=== PATIENT | female | born 1990 | race Caucasian/White ===

== ENCOUNTER → 2016-08-24 | Outpatient (CLI) | payer BC ==
[~2016-08-24] MED LIST: AZIT-21 PO; CATHETER FLUSH 10 ML SYR IV PRN; CODE-54 PO; FRS325T PO; IBP600T1 PO; IBUP-1773 PO; IOHEXOL 350 MG/ML 100 ML (OMNIPAQUE 350) VIAL IV ONE; NITR-65 PO; NS 100 ML (IVPB) BAG IV ONE; ONDA4TAB8 SL; ONDA8TAB13 PO; PHEN200T27 PO; PREN-115 PO; TRAM50TA2 PO
--- OUTSIDE RECORDS SUMMARY | 2016-08-24 10:55 | XMS REPORT | Continuity of Care Document ---
Author Author [facility] Organization [facility] Address Unknown Phone Unavailable Care Team Providers Care Upsetter Helper Name Role Phone Dominga Luna PCP Unavailable Source Comments Some departments are not documenting in the electronic medical record. If you do not see the information that you expected, contact Release of Information in the Health Information Management department at [phone] for further assistance in locating additional records.[facility] Active Allergies and Adverse Reactions No Known Allergies Current Medications Prescription Sig. Disp. Refills Start End Date Status Date NO HOME MEDICATIONS Active HYDROcodone/acetaminophen Take 1 Tab by mouth every 30 Tab 0 01/14/20 Active (NORCO; VICODIN) 5-325 mg 4 hours as needed for 15 tablet Pain. Active Problems Problem Noted Date Scar condition and fibrosis of skin 01/13/2015 Hypertrophy of breast 09/01/2014 Social History Tobacco Use Types Packs/Day Years Used Date Never Smoker Smokeless Tobacco: Never Used Alcohol Use Drinks/Week oz/Week Comments Yes OCCASSIONALLY Last Filed Vital Signs Vital Sign Reading Time Taken Blood Pressure 116/69 01/13/2015 10:31 AM CDT Pulse 90 01/13/2015 10:31 AM CDT Temperature 37 C (98.6 F) 11/25/2014 2:55 PM CDT Respiratory Rate 18 01/13/2015 10:31 AM CDT Height 1.702 m (5' 7") 01/13/2015 10:31 AM CDT Weight 83.462 kg (184 lb) 01/13/2015 10:31 AM CDT Body Mass Index 28.81 01/13/2015 10:31 AM CDT Oxygen Saturation 99% 10/27/2014 3:00 PM CDT Plan of Care Health Maintenance Due Date Last Done Comments Physical (Comprehensive) 1996 Exam Hpv Vaccines (#1) 2000 Pertussis Vaccine 2000 Tetanus Vaccine 2006 Cervical Cancer Screening 2010 Influenza Vaccine 03/23/2016 Results from Last 3 Months Not on file
--- NOTE | 2016-08-24 12:20 | Diagnostic Imaging Report ---
PROCEDURE: CT abdomen and pelvis with contrast. TECHNIQUE: Multiple contiguous axial images were obtained through the abdomen and pelvis after administration of intravenous contrast. INDICATION: Abdominal pain. 100 mL of Omnipaque-350 is administered intravenously. FINDINGS: The lung bases demonstrate mild atelectasis. The liver, the gallbladder, the spleen, the pancreas, and the adrenal glands appear unremarkable for an unenhanced exam. The abdominal aorta is normal in caliber. No para-aortic significantly enlarged lymph nodes are seen. The kidneys have symmetric enhancement and contrast excretion. There is no hydronephrosis. The urinary bladder appears unremarkable. There is an IUD in the uterus, which appears in good position. There is no bowel obstruction. There is no significant free fluid or fluid collection in the abdomen or pelvis. The appendix is normal. The left adnexa minimally prominent, probably related to prominent follicles. The osseous structures appear grossly unremarkable. There is a 9 mm indeterminate calcification seen anterior to the urethra at the level of the symphysis pubis of questionable significance. No apparent connection to the urethra to suggest urethral diverticulum with a stone. IMPRESSION: No significant abnormality identified. The appendix is normal. Dictated by: Dictated on workstation # [id number]
== END ==
LOC: RAD 10:52
PROVIDERS: ATTEND Internal Medicine
DX: R10.31 Right lower quadrant pain (principal)
CPT/HCPCS: 74177

== ENCOUNTER 2017-06-25 05:30 | Outpatient (CLI) | payer BC ==
[~2017-06-25] VITALS: Ht 172.7 cm; Wt 83.0 kg
[~2017-06-25 05:30] MED LIST changes: -CATHETER FLUSH 10 ML SYR IV PRN; -IOHEXOL 350 MG/ML 100 ML (OMNIPAQUE 350) VIAL IV ONE; -NS 100 ML (IVPB) BAG IV ONE
[2017-06-25] MEDS ORDERED: MULT-141 PO (11:08)
== END 2017-06-25 11:58 ==
LOC: PREOP 05:30
PROVIDERS: ATTEND Obstetrics & Gynecology
DX: Z01.818 Encounter for other preprocedural examination (principal); N39.3 Stress incontinence (female) (male); N80.9 Endometriosis, unspecified; N81.10 Cystocele, unspecified; D64.9 Anemia, unspecified

== ENCOUNTER 2017-06-29 10:04 | Day surgery (SDC) | payer BC ==
[~2017-06-29] VITALS: Ht 172.7 cm; Wt 83.0 kg
[~2017-06-29 10:04] MED LIST changes: +MULT-141 PO
[2017-06-29] MEDS ORDERED: CATHETER FLUSH 10 ML SYR IV PRN (10:30)
[2017-06-29] MEDS ORDERED: ceFAZolin 1 GM/NS 50 ML IVPB IV ONE ×2 (10:30)
[2017-06-29 10:39] VITALS: BP 119/73
[2017-06-29 11:10] LABS: BASOPHILS % (AUTO) 0 % (0-10); EOSINOPHILS % (AUTO) 1 % (0-10); LYMPHOCYTES # (AUTO) 1.6 X 10^3 (1.0-4.0); LYMPHOCYTES % (AUTO) 24 % (12-44); MEAN CORPUSCULAR HEMOGLOBIN 29 PG (25-34); MEAN CORPUSCULAR HGB CONC 33 G/DL (32-36); MEAN CORPUSCULAR VOLUME 89 FL (80-99); MEAN PLATELET VOLUME 11.2 FL (7.4-10.4); MONOCYTES # (AUTO) 0.6 X 10^3 (0.0-1.0); MONOCYTES % (AUTO) 9 % (0-12); NEUTROPHILS # (AUTO) 4.3 X 10^3 (1.8-7.8); NEUTROPHILS % (AUTO) 67 % (42-75); PLATELET COUNT 198 10^3/uL (130-400); RED BLOOD COUNT 4.25 10^6/uL (4.35-5.85); RED CELL DISTRIBUTION WIDTH 12.7 % (10.0-14.5); WHITE BLOOD COUNT 6.5 10^3/uL (4.3-11.0)
--- NOTE | 2017-06-29 12:54 | Progress Note-Pre Operative ---
Pre-Operative Progress Note H&P Reviewed The H&P was reviewed, patient examined and no changes noted. Date Seen by Provider: Jun 29, 2017 Time Seen by Provider: 12:53 Date H&P Reviewed: Jun 29, 2017 Time H&P Reviewed: 12:53 Pre-Operative Diagnosis: chronic pelvic pain/endomtriosis/cystocele/stress urinary incontinence/ ROBINA BORDEN MD Jun 29, 2017 12:53 pm
--- NOTE | 2017-06-29 12:55 | Progress Note-Post Operative ---
Post-Operative Progess Note Surgeon (s)/Tennis Director (s) Surgeon ROBINA BORDEN MD Tennis Director: Carmelita Archer Pre-Operative Diagnosis chronic pelvic pain/endomtriosis/cystocele/stress urinary incontinence/ Post-Operative Diagnosis same with pathology pending Procedure & Operative Findings Date of Procedure 06/29/17 Procedure Performed/Findings total laparoscopic hysterectomy with bilateral salpingo-oophorectomy and anterior and posterior colporrhaphy --- pubovaginal vaginal sling and cystoscopy by Dr. Hamilton Anesthesia Type Gen. Estimated Blood Loss Estimated blood loss (mL): 150 mL Specimens/Packing Specimens Removed uterus tubes and ovaries Packing: Kerlix to the vaginal vault ROBINA BORDEN MD Jun 29, 2017 12:55
[2017-06-29] MEDS ORDERED: D5 LR IV SOLUTION 1,000 ML IV SCH (12:56)
[2017-06-29] MEDS ORDERED: IBUP-1780 PO ×2 (12:59)
[2017-06-29] MEDS ORDERED: DOCU-143 PO ×2 (12:59)
[2017-06-29] MEDS ORDERED: OXYC-202 PO ×2 (12:59)
[2017-06-29] MEDS ORDERED: NORG1TAB14 PO ×2 (12:59)
[2017-06-29] MEDS ORDERED: PROMETHAZINE INJ 25 MG/ML (PHENERGAN) AMP IM PRN (13:00)
[2017-06-29] MEDS ORDERED: BENZOCAINE/MENTHOL (DERMOPLAST) 56 ML CAN TP PRN (13:00)
[2017-06-29] MEDS ORDERED: oxyCODONE/APAP 10/325MG (PERCOCET 10) TABLET PO PRN (13:00)
[2017-06-29] MEDS ORDERED: WATER (STERILE) FOR INJ 10 ML BTL INJ ONE (13:00)
[2017-06-29] MEDS ORDERED: ONDANSETRON 4 MG/2 ML (SDV) Z0FRAN IVP PRN ×2 (13:00→16:00)
[2017-06-29] MEDS ORDERED: MEPERIDINE (DEMEROL) INJ 100 MG/ML IM PRN (13:00)
--- NOTE | 2017-06-29 13:01 | Discharge Instructions ---
Discharge Instructions Discharge Medications New, Converted or Re-Newed RX: RX on Chart Patient Instructions Patient Instructions: as directed Return to The Hospital For: as directed Activity & Diet Discharge Diet: No Restrictions Activity as Tolerated: No Orders-Post D/C & Referrals Follow Up Appt: return to clinic next Monday July 03, 2017 at 930 a.m. for staple removal Call to make follow up appt. for patient in 4 weeks. Activity: Rest for 24 hours, than as tolerated. Wound Care: May remove Band-Aid tomorrow. Replace as desired. Keep incisions clean and dry. Wash daily with soap and water. Please call in RX to patient pharmacy. Diet: As tolerated-Clear Liquids only if nauseated. May shower or tub bathe as desired. No driving for 24 hours, no alcoholic beverages for 24 hours, and nothing per vagina (no tampons, douching, or intercoUrse) for 2 weeks. Patient to return to the clinic as soon as possible for: Temperature greater than 101F, Severe Pain, Foul discharge from incision or vagina, Excessive Bleeding (more than a period). ROBINA BORDEN MD Jun 29, 2017 1:01 pm
[2017-06-29] MEDS ORDERED: BUP/EPI 0.5% 1:200,000 (MARCAINE) 10ML VIAL IJ ONE (13:02)
[2017-06-29] MEDS ORDERED: fentaNYL INJECTION 250 MCG/5 ML AMP ONE (13:21)
[2017-06-29] MEDS ORDERED: MIDAZOLAM 2 MG/2 ML (VERSED) VIAL ONE (13:21)
[2017-06-29] MEDS ORDERED: ESTRADIOL VAGINAL CREAM 42.5 GM (ESTRACE) VG ONE (13:22)
[2017-06-29] MEDS ORDERED: DEXAMETHASONE 10 MG/ML (DECADRON) 1 ML VIAL ONE (14:17)
[2017-06-29] MEDS ORDERED: proPOfol 200 MG/20 ML (DIPRIVAN) VIAL IV ONE (14:17)
[2017-06-29] MEDS ORDERED: SEVOFLURANE (ULTANE) 15 ML INHAL SOLN ONE ×2 (14:17→15:31)
[2017-06-29] MEDS ORDERED: NEOSTIGMINE (BLOXIVERZ ) 1 MG/1ML 10 ML VIAL ONE (14:17)
[2017-06-29] MEDS ORDERED: ROCURONIUM 50 MG/5 ML (ZEMURON) VIAL IV ONE (14:17)
[2017-06-29] MEDS ORDERED: LIDOCAINE PF 2% 5 ML (XYLOCAINE) VIAL ONE (14:17)
[2017-06-29] MEDS ORDERED: GLYCOPYRROLATE 0.2 MG/ML (ROBINUL) 2 ML VIAL ONE (14:17)
[2017-06-29] MEDS ORDERED: LACTATED RINGERS 1,000 ML IV PRN (14:19)
[2017-06-29] MEDS ORDERED: KETOROLAC 30 MG/ML VIAL ONE (14:49)
[2017-06-29] MEDS ORDERED: morphine INJ 10 MG/ML 1ML (SYR OR VIAL) ONE (14:50)
[2017-06-29] MEDS: ESTROGENS CONJ IV 25 MG/5 ML (PREMARIN) VIAL IVP ONE ×2 (15:40→16:20)
[2017-06-29] MEDS: KETOROLAC 30 MG/ML VIAL IVP SCH ×2 (15:55→16:05)
[2017-06-29] MEDS ORDERED: morphine INJ 10 MG/ML 1ML (SYR OR VIAL) IVP PRN (16:00)
[2017-06-29] MEDS ORDERED: MEPERIDINE (DEMEROL) INJ 50 MG/ML IVP PRN (16:00)
[2017-06-29 17:00] VITALS: BP 93/62
[2017-06-29] MEDS ORDERED: ONDANSETRON 4 MG/2 ML (SDV) Z0FRAN ONE (18:32)
[2017-06-29] MEDS ORDERED: KETOROLAC 30 MG/ML VIAL IVP SCH ×2 (19:30→22:00)
[2017-06-29 21:35] VITALS: BP 101/64
--- NOTE | 2017-06-29 23:17 | OPERATIVE REPORT ---
DATE OF SERVICE: 06/29/2017 PREOPERATIVE DIAGNOSES: Chronic pelvic pain, uterovaginal prolapse, stress urinary incontinence and endometriosis. POSTOPERATIVE DIAGNOSES: Chronic pelvic pain, uterovaginal prolapse, stress urinary incontinence and with extensive endometriosis. OPERATIVE PROCEDURE: Total laparoscopic hysterectomy with bilateral salpingo-oophorectomy, destruction of endometriosis and adhesiolysis followed by anterior and posterior vaginal repairs with Dr. Houser performing a pubovaginal sling and cystoscopy concurrent with the anterior repair. OPERATIVE DESCRIPTION: With the patient in the supine position under satisfactory general anesthesia, she was repositioned in dorsal lithotomy position in the [facility] and prepped and draped in the usual fashion for abdominal and vaginal surgery. Urinary bladder was drained via Knowles catheter to dependent drainage. Weighted speculum was placed in the posterior fornix of the vagina. Cervix exposed and grasped anteriorly with single tooth tenaculum. Uterus was sounded to 11 cm with uterine sound. The cervix was then serially dilated with Bradley dilators to accommodate a Erika II manipulator which was placed using a 6 mm x 1 cm uterine probe and a 30 mm colpotomy ring. Sutures of #1 Vicryl were placed at 3 o'clock and 9 o'clock positions of the cervix to affix the uterus and cervix to the manipulator. The speculum and tenaculum were removed and the patient brought in low dorsolithotomy position. A 12 mm incision was made 3 cm superior to the umbilicus. Veress needle was placed through that incision. Correct placement was confirmed with a water drop test. The abdomen was insufflated with 2.4 liters of carbon dioxide then the Veress needle was removed, and a 12 mm Optiview laparoscopic port placed. The abdominal wall was transilluminated and ports of 8 mm were placed 9 cm lateral to the umbilicus on each side. All incision sites for the ports were infiltrated with 0.25% Marcaine with epinephrine prior to incision. The patient was now placed in Trendelenburg allowing the bowels spill out of the pelvis. The operative equipment was positioned and then using a vessel sealer on the right and a bipolar fenestrated grasper on the left, the procedure was initiated first by inspecting the pelvis, finding extensive endometriosis across the cul-de-sac and both ovarian fossae and involving both ovaries more so on the left than on the right and an extensively involved adenomyosis appearing uterus. The appendix was identified. It was a normal vermiform appendix. It was well up in the right lower quadrant. Decision was made to go ahead with the intended procedure. The right tube and ovary were grasped and elevated. The IP ligament was clamped, cauterized and divided with the vessel sealer and was continued stepwise across the mesovarium then across the round ligament, across the broad ligament and eventually down onto the cardinal ligament allowing for removal of the tube and ovary on the right. Eventually, with the uterus, the same procedure was performed on the left. The anterior lower uterine segment peritoneum was then exposed, and using a monopolar shear on the right and placed the vessel sealer, the peritoneum was divided the bladder was carefully dissected down off the lower uterine segment. A colpotomy incision made starting at 12 o'clock position onto the colpotomy ring using the monopolar shear. That incision was continued circumferentially until the entire colpotomy ring was exposed allowing for removal of the uterus with tubes and ovaries still attached through the vagina. Most of the endometriosis was removed with the specimen. The vaginal cuff was now closed with a running suture of V-Loc barbed suture and then a second suture was used to finish the terminus on the left side of the cuff and then bringing the peritoneum back down onto the vaginal cuff. Care was taken to include the uterine vessel pedicles with the closure. Pelvis now irrigated and examined for hemostasis. That being complete, the monopolar shear was replaced as was the bipolar fenestrated grasper. The endometriosis implants in the cul-de-sac and both ovarian fossae were touched with electrocautery to destroy them. The left pelvic sidewall the ureter ran right behind these endometriosis implants. The implants were elevated and cauterized the peritoneum from the underlying ureter before to allow for protection of the ureter. Ureter was seemed to peristalse on both sides before, during and after the procedure. This procedure was now terminated. By removing the operative instruments and the operative ports, the abdomen was evacuated of the insufflating gas in the process of removing the ports. The skin incisions were stapled after the fascia at the umbilical incision was closed with [id number] suture of 2-0 Vicryl. The patient was now brought into the dorsal lithotomy position for the anterior and posterior vaginal repairs. Weighted speculum was placed in the posterior fornix of the vagina, cervix. The anterior vaginal wall was grasped with two Josh clamps. Incision was made in the midline of the vaginal wall with Metzenbaum scissors that was extended almost to the apex of the vagina and down to approximately 1 cm from the urethral meatus. The vesicovaginal space was developed by dissecting the vaginal wall off of the muscularis of the bladder back to the pubic rami bilaterally. The endopelvic fascia and bladder wall was then plicated with 2-0 Vicryl sutures elevating the bladder and lengthening the urethra. At this point, Dr. Houser assumed care of the patient for his pubovaginal sling and cystoscopy. I remained to assist. On completion of this portion of the procedure, I resumed care of the patient. With Dr. Houser's portion completed and a Knowles catheter in the urinary bladder draining clear yellow urine, the redundant anterior vaginal muscularis mucosa was removed sharply. The vaginal wall was closed with a running suture of 2-0 Vicryl effecting good support of the vaginal wall and good reapproximation. Posterior repair was now affected by placing Josh clamps on the perineum and the hymenal ring at 5 o'clock and 7 o'clock position. The inverted triangle of skin was removed from the perineal body and an upright triangle from the posterior vaginal floor. The rectovaginal space was entered sharply and dissected bluntly to the apex of the vagina. There was examined for an enterocele. There being a small and that was reduced and a pursestring suture of 2-0 Vicryl pop-off suture was placed. A second suture of pursestring was placed to reinforce that closure and then the rectovaginal space was obliterated with additional sutures of 2-0 Vicryl. The perineal body was restored with 2-0 Vicryl sutures and then the redundant posterior vaginal wall muscularis and mucosa was removed sharply and the vaginal wall was closed with a running suture of 3-0 Vicryl Rapide, that closure was continued past the hymenal ring down onto the perineal body where it was brought back up subcutaneous to the introitus where the suture was tied. Digital rectal exam confirmed no stricture or stenosis of the rectum and no sutures into or through the rectal mucosa. The vagina was now filled with Estrace vaginal cream and a pack of Kerlix gauze was placed. Knowles catheter was left to dependent drainage. Sponge and needle counts were correct at the end of the procedure. Estimated blood loss for procedure was around 150 mL. The patient tolerated the procedure well and was uneventfully awakened from her general anesthesia and transferred to recovery room in stable condition with plans for 23-hour observation. Job ID: [id number] DocumentID: [id number] Dictated Date: 06/29/2017 15:39:14 Crystal Finisher Date: 06/29/2017 23:16:10 Dictated By: ROBINA BORDEN MD
--- NOTE | 2017-06-30 00:29 | OPERATIVE REPORT ---
DATE OF SERVICE: 06/29/2017 PREOPERATIVE DIAGNOSIS: Urinary incontinence with overactive bladder and intrinsic sphincter deficiency. POSTOPERATIVE DIAGNOSIS: Urinary incontinence with overactive bladder and intrinsic sphincter deficiency. OPERATION PERFORMED: Pubovaginal sling and cystoscopy. SURGEON: Eugenia Nina MD DELIVERY CREW MEMBER: Samuel Harp MD COMPLICATIONS: None. PROCEDURE: After Dr. Harp performed his first part of his surgery that he will dictate, I went ahead and inserted a Knowles catheter draining clear urine. I passed the Solyx device sling on both sides using the described technique. The sling was sitting nicely under the mid urethra with no twisting tension and passage of a hemostat easily between it and the underlying tissue. I went ahead and removed the Knowles catheter to perform cystoscopy to confirm the integrity of the bladder, ureters and urethra. There was no foreign body visualized and presence of the sling under the mid urethra. I left the bladder half full, removed the cystoscope and performed a manual Valsalva maneuver. It was negative. I went ahead and reinserted a Knowles catheter. Estimated blood loss for my part was negligible and Dr. Harp proceeded with his surgery that he will dictate. Job ID: [id number] DocumentID: [id number] Dictated Date: 06/29/2017 15:14:44 Investment Representative Date: 06/29/2017 22:33:56 Dictated By: EUGENIA NINA MD
[2017-06-30 00:50] VITALS: BP 110/67
[2017-06-30] MEDS ORDERED: IBUPROFEN 800 MG (MOTRIN) TAB PO ONE ×2 (00:54→08:35)
[2017-06-30] MEDS: IBUPROFEN 800 MG (MOTRIN) TAB PO SCH ×2 (00:58→09:11)
[2017-06-30 05:00] VITALS: BP 100/63
--- NOTE | 2017-06-30 07:12 | Progress Note-Standard ---
Standard Progress Note Progress Notes/Assess & Plan Date Seen by Provider: Jun 30, 2017 Time Seen by Provider: 07:11 Progress/Assessment & Plan this patient is without complaint. She is ambulating, she has not voided yet, she has good pain control and is tolerating oral intake. Vital Signs Date Time Temp Pulse Resp B/P (MAP) Pulse Ox O2 Delivery O2 Flow Rate FiO2 06/30/17 00:50 98.2 97 18 110/67 (81) 97 Room Air 06/29/17 21:35 97.8 101 20 101/64 (76) 97 Room Air 06/29/17 17:00 99.2 86 20 93/62 (72) 100 Room Air 06/29/17 10:39 99.0 86 16 119/73 (88) 98 Room Air I & O 06/30/17 07:00 Intake Total 1700 ml Output Total 770 ml Balance 930 ml vital signs stable. Patient afebrile. The abdomen is benign. Bowel sounds are present in all 4 quadrants. Extremities show no clubbing cyanosis. There is no Homans sign. Assessment and plan postoperative day number 1 doing well. Bladder trial is ongoing. Patient demonstrated adequate bladder function she will be discharged home with follow-up in clinic. Final Diagnosis chronic pelvic pain/endometriosis/uterovaginal prolapse/urinary incontinence ROBINA BORDEN MD Jun 30, 2017 7:12 am
[2017-06-30] MEDS ORDERED: ONDANSETRON 8 MG (ZOFRAN) ORAL DISSOLVE TAB PO PRN (07:45)
[2017-06-30 08:00] VITALS: BP 115/66
[2017-06-30] MEDS ORDERED: ESTRADIOL 1 MG TAB (ESTRACE) PO SCH (09:00)
[2017-06-30] MEDS ORDERED: DOCUSATE SODIUM 100 MG (COLACE) CAP PO SCH (09:00)
--- NOTE | 2017-06-30 11:04 | Progress Note-Urology ---
Progress Note-Urology Progress Notes/Assess & Plan Progress/Assessment & Plan DID NOT VOID YET. DRY, NO LEAK Final Diagnosis INCONTINENCE EUGENIA NINA MD Jun 30, 2017 11:04 am
[2017-06-30 13:00] VITALS: BP 115/66
--- NOTE | 2017-06-30 13:13 | Anesthesia-General Post-Op ---
General Patient Condition Mental Status/LOC: Same as Preop Cardiovascular: Satisfactory Nausea/Vomiting: Absent Respiratory: Satisfactory Pain: Controlled Complications: Absent Post Op Complications Complications None Follow Up Care/Instructions Patient Instructions None needed. Anesthesia/Patient Condition Patient Condition Patient is doing well, no complaints, stable vital signs, no apparent adverse anesthesia problems. D/C to home today per pt. CHIRAG PEDRAZA DO Jun 30, 2017 13:13
== END 2017-06-30 13:00 | disposition home or self-care (01) ==
LOC: SDC 10:04 → WS 16:40 → SDC 06-30 13:00
PROVIDERS: ATTEND Obstetrics & Gynecology
DX: N80.0 Endometriosis of uterus (principal); N80.1 Endometriosis of ovary; N80.3 Endometriosis of pelvic peritoneum; N73.6 Female pelvic peritoneal adhesions (postinfective); N83.201 Unspecified ovarian cyst, right side; N83.202 Unspecified ovarian cyst, left side; N81.4 Uterovaginal prolapse, unspecified; N39.3 Stress incontinence (female) (male); N36.42 Intrinsic sphincter deficiency (ISD); N32.81 Overactive bladder
CPT/HCPCS: 36415; 84703; 85025; 86850; 86900; 86901; 87081; 94664

== ENCOUNTER 2017-07-01 03:34 | Emergency (ER) | payer BC ==
[~2017-07-01] VITALS: Ht 172.7 cm; Wt 83.0 kg
[~2017-07-01 03:34] MED LIST changes: +DOCU-143 PO; +IBUP-1780 PO; +NORG1TAB14 PO; +OXYC-202 PO
[2017-07-01] MEDS ORDERED: fentaNYL INJECTION 100 MCG/2 ML AMP IVP STA (03:46)
[2017-07-01] MEDS ORDERED: NS IV 1000 ML 1,000 ML IV ONE (03:46)
--- NOTE | 2017-07-01 03:56 | ED Abdominal Pain ---
General Chief Complaint: Abdominal/GI Problems Stated Complaint: AB PAIN Nursing Triage Note: PT TO ED 9 PER W/C W/ C/O LOWER ABD PAIN ONSET AFTER HAVING HYSTERECTOMY YESTERDAY ET BLADDER SLING. REPORTS PAIN UNCONTROLLED W/ RX PAIN MEDS. PT TEARFUL, SLOW TO MOVE AT THIS TIME. DENIES DIFFICULTY W/ URINATION. Sepsis Screen: No Definite Risk Source of Information: Patient, Family Exam Limitations: No Limitations History of Present Illness Time Seen By Provider: 03:40 Initial Comments Here with severe lower abdominal pain and pressure that has been going on this evening. Had complete hysterectomy as well as bladder sling done on 06/29/17. Discharged on the . Was doing better until early this morning when she was having severe pressure. She did take 2 of her Percocet and that did not help. Denies fever or chills. Denies nausea, vomiting or diarrhea. Denies significant vaginal bleeding. States that she is having some difficulty with urination and feels like she has to push to get it out. Timing/Duration: 4-6 Hours Severity/Quality: Moderate, Severe, Full Location: Suprapubic Radiation: Back Activities at Onset: None Modifying Factors: Worsens With Movement, Improves With Urinating Associated Symptoms: Back Pain, No Chest Pain, No Fever/Chills, No Nausea/ Vomiting, No Weakness Allergies and Home Medications Allergies Coded Allergies: No Known Drug Allergies (Unverified , 06/25/17) Home Medications Docusate Sodium 100 Mg Capsule, 100 MG PO BID, #60 Prescribed by: ROBINA DELEON on 06/29/17 1259 Ibuprofen 800 Mg Tablet, 800 MG PO Q4H PRN for PAIN, #60 Prescribed by: ROBINA DELEON on 06/29/17 1259 Multivit with Calcium,Iron,Min 1 Each Tablet, 1 EACH PO DAILY, (Reported) Norgestimate-Ethinyl Estradiol 1 Each Tablet, 1 EACH PO DAILY for 90 Days, #90 Ref 4 Prescribed by: ROBINA DELEON on 06/29/17 1259 Oxycodone HCl/Acetaminophen 1 Each Tablet, 1-2 TAB PO Q4H PRN for PAIN, #60 Ref 0 Prescribed by: ROBINA DELEON on 06/29/17 1259 Review of Systems Constitutional: see HPI, No chills, No fever EENTM: No Symptoms Reported Respiratory: No Symptoms Reported Cardiovascular: No Symptoms Reported Gastrointestinal: See HPI, Abdominal Pain, Constipated, Denies Diarrhea, Denies Vomiting Genitourinary: See HPI, Pain Musculoskeletal: no symptoms reported Skin: no symptoms reported Psychiatric/Neurological: No Symptoms Reported All Other Systems Reviewed Negative Unless Noted: Yes Past Mmizvwk-Zidsjv-Mclkfz Hx Patient Social History Alcohol Use: Occasionally Uses Recreational Drug Use: No Smoking Status: Never a Smoker Recent Foreign Travel: No Contact w/Someone Who Travel: No Recent Infectious Disease Expo: No Recent Hopitalizations: No Physical Abuse: No Sexual Abuse: No Mistreated: No Fear: No Immunizations Up To Date Tetanus Booster (TDap): Unknown PED Vaccines UTD: No Seasonal Allergies Seasonal Allergies: No Surgeries History of Surgeries: Yes (BREAST REDUCTION) Surgeries: Breast, Hysterectomy Respiratory History of Respiratory Disorde: No Cardiovascular History of Cardiac Disorders: No Neurological History of Neurological Disord: No Reproductive System Hx Reproductive Disorders: Yes (CPP, CYSTOCELE) Sexually Transmitted Disease: No HIV/AIDS: No Female Reproductive Disorders: Endometriosis, 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 Genitourinary Genitourinary Disorders: Kidney Infection, UTI-Chronic Gastrointestinal History of Gastrointestinal Di: No Musculoskeletal History of Musculoskeletal Dis: No Endocrine History of Endocrine Disorders: No HEENT Loss of Vision: Denies Hearing Impairment: Denies Cancer History of Cancer: No Psychosocial History of Psychiatric Problem: No Suicide Risk Score: 0 Integumentary History of Skin or Integumenta: No Blood Transfusions History of Blood Disorders: No Adverse Reaction to a Blood Tr: No (N/A) Reviewed Nursing Assessment Reviewed/Agree w Nursing PMH: Yes Family Medical History Significant Family History: Asthma Physical Exam Vital Signs VS - Last 72 Hours, by Label 07/01/17 03:42 Temp 98.9 Pulse 99 Resp 20 B/P (MAP) 112/80 (91) Pulse Ox 99 O2 Delivery Room Air Capillary Refill : Less Than 3 Seconds General Appearance: WD/WN, moderate distress HEENT: PERRL/EOMI, pharynx normal Neck: full range of motion, supple Respiratory: lungs clear, normal breath sounds, wheezing Cardiovascular: regular rate, rhythm, no murmur Peripheral Pulses: 2+ Dorsalis Pedis (R), 2+ Left Dors-Pedis (L), 2+ Radial Pulses (R), 2+ Radial Pulses (L) Gastrointestinal: soft, tenderness (lower abdomen) Extremities: non-tender, normal inspection Back: normal inspection, no CVA tenderness, no vertebral tenderness Neurologic/Psychiatric: alert, oriented x 3 Skin: normal color, warm/dry Progress/Results/Core Measures Results/Orders Lab Results Laboratory Tests Test 07/01/17 03:57 07/01/17 04:17 Range/Units White Blood Count 14.2 H 4.3-11.0 10^3/uL Red Blood Count 3.47 L 4.35-5.85 10^6/uL Hemoglobin 10.3 L 11.5-16.0 G/DL Hematocrit 32 L 35-52 % Mean Corpuscular Volume 91 80-99 FL Mean Corpuscular Hemoglobin 30 25-34 PG Mean Corpuscular Hemoglobin Concent 33 32-36 G/DL Red Cell Distribution Width 12.9 10.0-14.5 % Platelet Count 183 130-400 10^3/uL Mean Platelet Volume 10.7 H 7.4-10.4 FL Neutrophils (%) (Auto) 77 H 42-75 % Lymphocytes (%) (Auto) 15 12-44 % Monocytes (%) (Auto) 8 0-12 % Eosinophils (%) (Auto) 0 0-10 % Basophils (%) (Auto) 0 0-10 % Neutrophils # (Auto) 10.9 H 1.8-7.8 X 10^3 Lymphocytes # (Auto) 2.1 1.0-4.0 X 10^3 Monocytes # (Auto) 1.1 H 0.0-1.0 X 10^3 Eosinophils # (Auto) 0.0 0.0-0.3 10^3/uL Basophils # (Auto) 0.0 0.0-0.1 10^3/uL Neutrophils % (Manual) 72 % Lymphocytes % (Manual) 19 % Monocytes % (Manual) 8 % Eosinophils % (Manual) 0 % Basophils % (Manual) 0 % Band Neutrophils 0 % Reactive Lymphocytes 1 % Blood Morphology Comment NORMAL Sodium Level 140 135-145 MMOL/L Potassium Level 3.6 3.6-5.0 MMOL/L Chloride Level 108 H 98-107 MMOL/L Carbon Dioxide Level 24 21-32 MMOL/L Anion Gap 8 5-14 MMOL/L Blood Urea Nitrogen 13 7-18 MG/DL Creatinine 0.80 0.60-1.30 MG/DL Estimat Glomerular Filtration Rate > 60 BUN/Creatinine Ratio 16 Glucose Level 105 70-105 MG/DL Calcium Level 8.3 L 8.5-10.1 MG/DL Total Bilirubin 0.2 0.1-1.0 MG/DL Aspartate Amino Transf (AST/SGOT) 13 5-34 U/L Alanine Aminotransferase (ALT/SGPT) 10 0-55 U/L Alkaline Phosphatase 38 L 40-136 U/L Total Protein 6.1 L 6.4-8.2 GM/DL Albumin 3.7 3.2-4.5 GM/DL Urine Color RED H Urine Clarity VERY CLOUDY H Urine pH 6 5-9 Urine Specific Edwards 1.020 1.016-1.022 Urine Protein 3+ H NEGATIVE Urine Glucose (UA) NEGATIVE NEGATIVE Urine Ketones NEGATIVE NEGATIVE Urine Nitrite NEGATIVE NEGATIVE Urine Bilirubin NEGATIVE NEGATIVE Urine Urobilinogen NORMAL NORMAL MG/DL Urine Leukocyte Esterase 3+ H NEGATIVE Urine RBC (Auto) 5+ H NEGATIVE Urine RBC TNTC H /HPF Urine WBC 5-10 H /HPF Urine Squamous Epithelial Cells 5-10 /HPF Urine Crystals NONE /LPF Urine Bacteria MODERATE H /HPF Urine Casts NONE /LPF Urine Mucus NEGATIVE /LPF Urine Culture Indicated YES My Orders Orders - BOONE ART MD Cbc With Automated Diff (07/01/17 03:46) Comprehensive Metabolic Panel (07/01/17 03:46) Ua Culture If Indicated (07/01/17 03:46) Saline Lock/Iv-Start (07/01/17 03:46) Ns Iv 1000 Ml (Sodium Chloride 0.9%) (07/01/17 03:46) Fentanyl Injection (Sublimaze Injection (07/01/17 03:46) Ct Abdomen/Pelvis W (07/01/17 03:55) Manual Differential (07/01/17 03:57) Iohexol Injection (Omnipaque 350 Mg/Ml 1 (07/01/17 04:45) Ns (Ivpb) (Sodium Chloride 0.9% Ivpb Bag (07/01/17 04:45) Urine Culture (07/01/17 04:17) Medications Given in ED Current Medications Medications Dose Ordered Sig/Darleen Route Start Time Stop Time Status Last Admin Dose Admin Iohexol 100 ml ONCE ONCE IV 07/01/17 04:45 07/01/17 04:46 DC 07/01/17 04:54 100 ML Sodium Chloride 100 ml ONCE ONCE IV 07/01/17 04:45 07/01/17 04:46 DC 07/01/17 04:54 80 ML Sodium Chloride 1,000 ml @ 0 mls/hr Q0M ONCE IV 07/01/17 03:46 07/01/17 03:48 DC 07/01/17 04:00 1,000 MLS/HR Vital Signs/I&O Vital Sign - Last 12Hours 07/01/17 03:42 Temp 98.9 Pulse 99 Resp 20 B/P (MAP) 112/80 (91) Pulse Ox 99 O2 Delivery Room Air Blood Pressure Mean: 91 Progress Note : Progress Note Seen and evaluated. IV, labs, UA, normal saline 1 L bolus, fentanyl [address] abdomen pelvis ordered. Monitor patient. Patient in CT and bladder noted to be quite large with poor flow of urine from the kidneys to the bladder as demonstrated by lack of contrast. On return to the ER from CT scan patient did have voided stated that she voided quite a bit but still felt a fair amount of pressure. Straight catheter done and 1700 mL of urine obtained. Afterwards patient states that she is feeling much better and finally has no pressure on her back and on her belly. I did discuss custom the case with Dr. Nina at 0 543. He wants to see the patient in the office tomorrow at 230 p.m. Patient is resting comfortably. We will have her attempt a void prior to discharge. 0720: Patient unable to void. Repeat straight catheter had 200 mL output. Patient feels better. She will try going home and using warm water stream or shower to help loosen muscles to allow her to urinate. This was somewhat effective yesterday. She will return if not improved. Discharged home with return precautions. Patient verbalize understanding instructions and agreement with plan. Diagnostic Imaging Diagonstic Imaging: CT Plain Films/CT/US/NM/MRI: abdomen, pelvis Comments Postsurgical changes within the abdomen and pelvis with minimal residual pneumoperitoneum. No loculated intra-abdominal fluid collections. Moderately distended urinary bladder without evidence of bladder wall thickening. Mild gas within the bladder lumen likely associated with recent catheterization. Departure Communication (Admissions) Time/Spoke to Consulting Phy: 05:43 Impression Impression: Primary Impression: Urinary retention Disposition: 01 HOME, SELF-CARE Condition: Improved Departure-Patient Inst. Decision time for Depature: 05:58 Referrals: NO,LOCAL PHYSICIAN (PCP) Primary Care Physician EUGENIA NINA MD Patient Instructions: Urinary Retention (DC) Add. Discharge Instructions: All discharge instructions reviewed with patient and/or family. Voiced understanding. Follow-up with Dr. Nina on Sunday at 1430 for recheck and further evaluation. Return for worsening, fever, vomiting, weakness, breathing problems or other concerns as needed. BOONE ART MD Jul 01, 2017 03:56
[2017-07-01 04:05] LABS: BASOPHILS % (AUTO) 0 % (0-10); EOSINOPHILS % (AUTO) 0 % (0-10); LYMPHOCYTES # (AUTO) 2.1 X 10^3 (1.0-4.0); LYMPHOCYTES % (AUTO) 15 % (12-44); MEAN CORPUSCULAR HEMOGLOBIN 30 PG (25-34); MEAN CORPUSCULAR HGB CONC 33 G/DL (32-36); MEAN CORPUSCULAR VOLUME 91 FL (80-99); MEAN PLATELET VOLUME 10.7 FL (7.4-10.4); MONOCYTES # (AUTO) 1.1 X 10^3 (0.0-1.0); MONOCYTES % (AUTO) 8 % (0-12); NEUTROPHILS # (AUTO) 10.9 X 10^3 (1.8-7.8); NEUTROPHILS % (AUTO) 77 % (42-75); PLATELET COUNT 183 10^3/uL (130-400); RED BLOOD COUNT 3.47 10^6/uL (4.35-5.85); RED CELL DISTRIBUTION WIDTH 12.9 % (10.0-14.5); WHITE BLOOD COUNT 14.2 10^3/uL (4.3-11.0)
[2017-07-01 04:27] LABS: ALANINE AMINOTRANSFERASE 10 U/L (0-55); ALBUMIN 3.7 GM/DL (3.2-4.5); ANION GAP 8 MMOL/L (5-14); ASPARTATE AMINO TRANSFERASE 13 U/L (5-34); BILIRUBIN,TOTAL 0.2 MG/DL (0.1-1.0); BLOOD UREA NITROGEN 13 MG/DL (7-18); BUN/CREATININE RATIO 16; CALCIUM 8.3 MG/DL (8.5-10.1); CARBON DIOXIDE 24 MMOL/L (21-32); CHLORIDE 108 MMOL/L (98-107); GFR ESTIMATED > 60; GLUCOSE 105 MG/DL (70-105); POTASSIUM 3.6 MMOL/L (3.6-5.0); SODIUM 140 MMOL/L (135-145); TOTAL PROTEIN 6.1 GM/DL (6.4-8.2)
[2017-07-01 04:30] LABS: BAND NEUTROPHILS 0 %; BASOPHILS % (MANUAL) 0 %; EOSINOPHILS % (MANUAL) 0 %; LYMPHOCYTES % (MANUAL) 19 %; NEUTROPHILS % (MANUAL) 72 %; REACTIVE LYMPHOCYTES 1 %
[2017-07-01 04:33] LABS: BILIRUBIN,URINE NEGATIVE (NEGATIVE); KETONES,URINE NEGATIVE (NEGATIVE); LEUKOCYTE ESTERASE ,URINE 3+ (NEGATIVE); NITRITE,URINE NEGATIVE (NEGATIVE); PH,URINE 6 (5-9); PROTEIN,URINE 3+ (NEGATIVE); UROBILINOGEN,URINE NORMAL (NORMAL)
[2017-07-01] MEDS ORDERED: IOHEXOL 350 MG/ML 100 ML (OMNIPAQUE 350) VIAL IV ONE (04:45)
[2017-07-01] MEDS ORDERED: NS 100 ML (IVPB) BAG IV ONE (04:45)
--- NOTE | 2017-07-01 06:26 | Diagnostic Imaging Report ---
PROCEDURE: CT abdomen and pelvis with contrast. TECHNIQUE: Multiple contiguous axial images were obtained through the abdomen and pelvis after administration of intravenous contrast. INDICATION: Abdominal pain. Recent hysterectomy. COMPARISON: CT abdomen and pelvis with IV contrast 08/24/2016. FINDINGS: Lung bases are clear. The liver, gallbladder, pancreas, spleen, adrenals, kidneys and collecting systems are negative. Marked distention of the urinary bladder containing a small amount of air, possibly iatrogenic. Mild inflammatory changes in the postoperative pelvis with no organized fluid collections. Small amount of free air anti-dependently in the abdomen. No lymphadenopathy. No evidence of bowel obstruction. Negative appendix. No acute osseous findings. IMPRESSION: 1. Mild inflammatory changes in the postoperative pelvis and small amount of free intraperitoneal air. No organized fluid collection suspicious for abscess. 2. Marked distention of the urinary bladder which contains a small amount of air, possibly iatrogenic. Dictated by: Dictated on workstation # [id number]
[2017-07-01 07:22] VITALS: BP 104/64
[2017-07-02] MEDS ORDERED: NITR100C PO (07:45)
[2017-07-02] MEDS ORDERED: BETH25TA11 PO (07:45)
== END 2017-07-01 07:22 | disposition home or self-care (01) ==
LOC: EDUNIT# 03:34 → ER 03:37
DX: R33.9 Retention of urine, unspecified (principal); Z97.5 Presence of (intrauterine) contraceptive device; Z87.42 Personal history of other diseases of the female genital tract; Z90.710 Acquired absence of both cervix and uterus
CPT/HCPCS: 36415; 51701; 51702; 74177; 80053; 81000; 85007; 85027; 87077; 87088; 87186

== ENCOUNTER 2017-07-02 05:30 | Emergency (ER) | payer BC ==
[~2017-07-02] VITALS: Ht 172.7 cm; Wt 83.0 kg
--- OUTSIDE RECORDS SUMMARY | 2017-07-02 05:37 | XMS REPORT | Clinical Summary ---
Author Author [facility] Organization [facility] Address Unknown Phone Unavailable Care Team Providers Care Data Center Architect Name Role Phone PCP Unavailable Source Comments Some departments are not documenting in the electronic medical record. If you do not see the information that you expected, contact Release of Information in the Health Information Management department at [phone] for further assistance in locating additional records.[facility] Allergies No Known Allergies Current Medications Prescription Sig. [...] Alcohol Use Drinks/Week oz/Week Comments Yes OCCASSIONALLY Sex Assigned at Date Recorded Not on file Last Filed Vital Signs Vital Sign Reading Time Taken Blood Pressure 116/69 01/13/2015 10:31 AM CDT Pulse 90 01/13/2015 10:31 AM CDT Temperature 37 C (98.6 F) 11/25/2014 2:55 PM CDT Respiratory Rate 18 01/13/2015 10:31 AM CDT Oxygen Saturation 99% 10/27/2014 3:00 PM CDT Inhaled Oxygen - - Concentration Weight 83.5 kg (184 lb) 01/13/2015 10:31 AM CDT Height 170.2 cm (5' 7") 01/13/2015 10:31 AM CDT Body Mass Index 28.82 01/13/2015 10:31 AM CDT Plan of Treatment Health Maintenance Due Date Last Done Comments PHYSICAL (COMPREHENSIVE) 1996 EXAM PERTUSSIS VACCINE 2000 TETANUS VACCINE 2006 CERVICAL CANCER SCREENING 2010 INFLUENZA VACCINE 02/20/2017 HPV VACCINES Aged Out No longer eligible based on patient's age to complete this topic Results Not on filefrom Last 3 Months
--- OUTSIDE RECORDS SUMMARY | 2017-07-02 05:38 | XMS REPORT ---
Author AMANDA Cano Organization [employer] Address Unknown Phone Unavailable Care Team Providers Care Script Girl Name Role Phone AMANDA CORTEZ CP Unavailable Allergies, Adverse Reactions, Alerts Substance Reaction Event Type N.K.D.A. Info Not Available Non Drug Allergy Problems Problem Type Condition Code Onset Dates Condition Status Problem Surveillance of previously prescribed intrauterine contraceptive device V25.42 Active Problem Screening for malignant neoplasm of the cervix V76.2 Active Problem Special screening examination, human papillomavirus [HPV] V73.81 Active Problem UTI (urinary tract infection) 599.0 Active Problem Abdominal pain, other specified site 789.09 Active Problem DTAP TEST V06.1 Active Problem Infections of genitourinary tract in , unspecified as to episode of care 646.60 Active Assessment Gastroenteritis K52.9 Active Problem Dysplastic nevus of lip 216.0 Active Problem Dysmenorrhea 625.3 Active Problem Unspecified breast screening V76.10 Active Problem Nausea with vomiting 787.01 Active Problem Acute sinusitis, unspecified 461.9 Active Problem Leukorrhea, not specified as infective 623.5 Active Problem Urinary tract infection, site not specified 599.0 Active Problem Need for prophylactic vaccination and inoculation, Influenza V04.81 Active Problem Routine follow-up V24.2 Active Problem Threatened premature labor, unspecified as to episode of care 644.00 Active Problem Supervision of other normal V22.1 Active Problem Corpus luteum cyst or hematoma 620.1 Active Problem Screening examination for venereal disease V74.5 Active Problem Screening of Streptococcus B V28.6 Active Problem Routine gynecological examination V72.31 Active Medications No Known Medications Procedures Procedure Coding System Code Date Office Visit, Est Pt., Level 3 CPT-4 37881 May 05, 2015 Vital Signs Date/Time: May 05, 2015 Temperature 98.0 F Weight 180.0 lbs Height 66 in BMI 29.05 Index Blood Pressure Diastolic 68 mmHg Blood Pressure Systolic 110 mmHg Cardiac Monitoring Heart Rate 78 bpm Results No Known Results Summary Purpose [employer] Submission
--- OUTSIDE RECORDS SUMMARY | 2017-07-02 05:38 | XMS REPORT ---
Author GILA Jefferson [facility] [employer] Address Unknown Phone Unavailable Care Team Providers Care Weather Strip Mechanic Name Role Phone GILA GO CP Unavailable Allergies, Adverse Reactions, Alerts Substance Reaction Event Type N.K.D.A. Info Not Available Non Drug Allergy Problems Problem Type Condition Code Onset Dates Condition Status Problem Routine gynecological examination V72.31 Active Problem Special screening examination, human papillomavirus [HPV] V73.81 Active Problem Surveillance of previously prescribed intrauterine contraceptive device V25.42 Active Problem DTAP TEST V06.1 Active Problem Infections of genitourinary tract in , unspecified as to episode of care 646.60 Active Problem Nausea with vomiting 787.01 Active Assessment UTI (urinary tract infection) 599.0 Active Problem UTI (urinary tract infection) 599.0 Active Problem Unspecified breast screening V76.10 Active Problem Screening for malignant neoplasm of the cervix V76.2 Active Problem Acute sinusitis, unspecified 461.9 Active Problem Dysmenorrhea 625.3 Active Problem Routine follow-up V24.2 Active Problem Leukorrhea, not specified as infective 623.5 Active Problem Abdominal pain, other specified site 789.09 Active Problem Need for prophylactic vaccination and inoculation, Influenza V04.81 Active Problem Screening of Streptococcus B V28.6 Active Problem Threatened premature labor, unspecified as to episode of care 644.00 Active Problem Urinary tract infection, site not specified 599.0 Active Problem Supervision of other normal V22.1 Active Problem Corpus luteum cyst or hematoma 620.1 Active Problem Screening examination for venereal disease V74.5 Active Medications Medication Code System Code Instructions Start Date End Date Status Dosage Zofran [facility] [address]-05 4 MG Orally every 6 hours prn Feb 27, 2015 2 tablets Macrobid [facility] [address]-93 100 MG Orally every 12 hrs Feb 27, 2015Feb 1 capsule with food Procedures Procedure Coding System Code Date Office Visit, Est Pt., Level 3 CPT-4 93406 Feb 27, 2015 URINALYSIS, AUTO, W/O SCOPE CPT-4 12323 Feb 27, 2015 Vital Signs Date/Time: Feb 27, 2015 Temperature 98.5 F Weight 180.3 lbs Height 66 in BMI 29.10 Index Blood Pressure Diastolic 70 mmHg Blood Pressure Systolic 118 mmHg Cardiac Monitoring Heart Rate 90 bpm Results No Known Results Summary Purpose [employer] Submission
--- OUTSIDE RECORDS SUMMARY | 2017-07-02 05:38 | XMS REPORT ---
Author Author ELAINA RAMIREZ [facility] Address [address] [place] [address] Care Team Providers Care Impersonator Character Name Role Phone ELAINA RAMIREZ Unavailable PROBLEMS Type Condition ICD9-CM Code WOD33-TQ Code Onset Dates Condition Status SNOMED Code Problem Screening for malignant neoplasm of the cervix V76.2 Active 978372837 Problem Dysmenorrhea 625.3 Active 372665052 Problem Unspecified breast screening V76.10 Active 059915365 Problem Leukorrhea, not specified as infective 623.5 Active 469455930 Problem Screening examination for venereal disease V74.5 Active 599285174 Problem Corpus luteum cyst or hematoma 620.1 Active 767481565 Problem Acute sinusitis, unspecified 461.9 Active 82200630 Problem Urinary tract infection, site not specified 599.0 Active 04395061 Problem Stress headaches F45.41 Active 40340572 Problem Encounter for dental examination Z01.20 Active 649706053 Problem Routine follow-up V24.2 Active 519167557 Problem Surveillance of previously prescribed intrauterine contraceptive device V25.42 Active 489771705780947 Problem Screening of Streptococcus B V28.6 Active 364994979 Problem UTI (urinary tract infection) 599.0 Active 62215496 Problem Threatened premature labor, unspecified as to episode of care 644.00 Active 717771247 Problem Pain of left foot M79.672 Active 13901261 Problem Dysplastic nevus of lip 216.0 Active 61216219 Problem DTAP TEST V06.1 Active Problem Need for prophylactic vaccination and inoculation, Influenza V04.81 Active 959733219 Problem Special screening examination, human papillomavirus [HPV] V73.81 Active 974402679 Problem Routine gynecological examination V72.31 Active 238267662786848 Problem Nausea with vomiting 787.01 Active 09991114 Problem Infections of genitourinary tract in , unspecified as to episode of care 646.60 Active 713041287 Problem Supervision of other normal V22.1 Active 387428488 Problem Abdominal pain, other specified site 789.09 Active 27548513 ALLERGIES Substance Reaction Event Type Date Status Bee Venom Unknown Non Drug Allergy Aug, Active SOCIAL HISTORY Never Assessed PLAN OF CARE Activity Details Follow Up prn Reason: VITAL SIGNS Height 66 in 2016-08-24 Weight 182.6 lbs 2016-08-24 Temperature 98.4 degrees Fahrenheit 2016-08-24 Heart Rate 80 bpm 2016-08-24 Respiratory Rate 20 2016-08-24 BMI 29.47 kg/m2 2016-08-24 Blood pressure systolic 138 mmHg 2016-08-24 Blood pressure diastolic 84 mmHg 2016-08-24 MEDICATIONS Unknown Medications RESULTS Name Result Date Reference Range CT Scan : Abdomen & Pelvis w/ Contrast 2016-08-24 PROCEDURES Procedure Date Ordered Result Body Site URINALYSIS, AUTO, W/O SCOPE Aug 24, 2016 IMMUNIZATIONS No Known Immunizations MEDICAL (GENERAL) HISTORY Type Description Date Medical History anemia Surgical History breast reduction 11/2014 Hospitalization History Surgery/child Hospitalization History kidney infaction
--- OUTSIDE RECORDS SUMMARY | 2017-07-02 05:38 | XMS REPORT ---
Author ARON Schmidt [facility] [employer] Address Unknown Phone Unavailable Care Team Providers Care Cmm Operator Name Role Phone ARON CAZARES CP Unavailable Allergies, Adverse Reactions, Alerts Substance Reaction Event Type N.K.D.A. Info Not Available Non Drug Allergy Problems Problem Type Condition Code Onset Dates Condition Status Problem Special screening examination, human papillomavirus [HPV] V73.81 Active Problem Unspecified breast screening V76.10 Active Problem Screening for malignant neoplasm of the cervix V76.2 Active Problem Dysplastic nevus of lip 216.0 Active Problem Need for prophylactic vaccination and inoculation, Influenza V04.81 Active Problem UTI (urinary tract infection) 599.0 Active Problem Abdominal pain, other specified site 789.09 Active Problem Infections of genitourinary tract in , unspecified as to episode of care 646.60 Active Problem Pain of left foot M79.672 Active Problem Acute sinusitis, unspecified 461.9 Active Problem Dysmenorrhea 625.3 Active Problem DTAP TEST V06.1 Active Problem Nausea with vomiting 787.01 Active Problem Urinary tract infection, site not specified 599.0 Active Problem Corpus luteum cyst or hematoma 620.1 Active Problem Routine follow-up V24.2 Active Problem Leukorrhea, not specified as infective 623.5 Active Problem Supervision of other normal V22.1 Active Problem Screening examination for venereal disease V74.5 Active Problem Screening of Streptococcus B V28.6 Active Problem Routine gynecological examination V72.31 Active Assessment Left ankle injury S99.912A Active Problem Threatened premature labor, unspecified as to episode of care 644.00 Active Problem Surveillance of previously prescribed intrauterine contraceptive device V25.42 Active Medications Medication Code System Code Instructions Start Date End Date Status Dosage Naproxen [facility] [address]-77 375 MG Orally Twice a day May 29, 2015 Jun 08, 2015 1 tablet Procedures Procedure Coding System Code Date Office Visit, Est Pt., Level 3 CPT-4 51883 Jun 03, 2015 X-RAY EXAM OF ANKLE CPT-4 88320 Jun 03, 2015 Vital Signs Date/Time: Jun 03, 2015 Temperature 97.8 F Weight 181.8 lbs Height 66 in BMI 29.34 Index Blood Pressure Diastolic 68 mmHg Blood Pressure Systolic 98 mmHg Cardiac Monitoring Heart Rate 80 bpm Results No Known Results Summary Purpose [employer] Submission
--- OUTSIDE RECORDS SUMMARY | 2017-07-02 05:38 | XMS REPORT ---
Author REJI Oviedo eClinicalWorks Address Unknown Phone Unavailable Care Team Providers Care Used Car Salesperson Name Role Phone REJI VELAZQUEZ CP Unavailable Allergies, Adverse Reactions, Alerts Substance Reaction Event Type N.K.D.A. Info Not Available Non Drug Allergy Problems Problem Type Condition Code Onset Dates Condition Status Problem Surveillance of previously prescribed intrauterine contraceptive device V25.42 Active Assessment Encounter for dental examination Z01.20 Active Problem Special screening examination, human papillomavirus [HPV] V73.81 Active Problem Infections of genitourinary tract in , unspecified as to episode of care 646.60 Active Problem Screening for malignant neoplasm of the cervix V76.2 Active Problem Dysmenorrhea 625.3 Active Problem Unspecified breast screening V76.10 Active Problem Pain of left foot M79.672 Active Problem Dysplastic nevus of lip 216.0 Active Problem Routine follow-up V24.2 Active Problem Need for prophylactic vaccination and inoculation, Influenza V04.81 Active Problem Encounter for dental examination Z01.20 Active Problem Abdominal pain, other specified site 789.09 Active Problem Nausea with vomiting 787.01 Active Problem Acute sinusitis, unspecified 461.9 Active Problem UTI (urinary tract infection) 599.0 Active Problem DTAP TEST V06.1 Active Problem Corpus luteum cyst or hematoma 620.1 Active Problem Screening of Streptococcus B V28.6 Active Problem Leukorrhea, not specified as infective 623.5 Active Problem Urinary tract infection, site not specified 599.0 Active Problem Screening examination for venereal disease V74.5 Active Problem Routine gynecological examination V72.31 Active Problem Threatened premature labor, unspecified as to episode of care 644.00 Active Problem Supervision of other normal V22.1 Active Medications No Known Medications Procedures Procedure Coding System Code Date INTRAORL-PERIAPICAL 1 FILM 68801 CPT-4 D0220 Feb 23, 2016 INTRAORL-PERIAPICAL EA ADD FILM CPT-4 D0230 Feb 23, 2016 COMP ORAL EVALUATION - NEW/EST PT CPT-4 D0150 Feb 23, 2016 TOPICAL FLUORIDE VARNISH CPT-4 D1206 Feb 23, 2016 BITEWINGS - FOUR FILMS CPT-4 D0274 Feb 23, 2016 INTRAORL-PERIAPICAL EA ADD FILM CPT-4 D0230 Feb 23, 2016 PROPHYLAXIS - ADULT CPT-4 D1110 Feb 23, 2016 PANORAMIC FILM SEE ALSO CODE 51097 CPT-4 D0330 Feb 23, 2016 Vital Signs Date/Time: Feb 23, 2016 Blood Pressure Diastolic 49 mmHg Blood Pressure Systolic 90 mmHg Cardiac Monitoring Heart Rate 75 bpm Results No Known Results Summary Purpose eClinicalWorks Submission
--- OUTSIDE RECORDS SUMMARY | 2017-07-02 05:38 | XMS REPORT ---
Author GILA Jefferson [facility] eClinicalWorks Address Unknown Phone Unavailable Care Team Providers Care Java Web Application Developer Name Role Phone GILA GO CP Unavailable Allergies, Adverse Reactions, Alerts Substance Reaction Event Type N.K.D.A. Info Not Available Non Drug Allergy Problems Problem Type Condition ICD-9 Code Onset Dates Condition Status Problem Surveillance [...] to episode of care 646.60 Active Assessment Urinary tract infection, site not specified 599.0 Active Problem Dysplastic nevus of lip 216.0 [...] Screening examination for venereal disease V74.5 Active Assessment Dysplastic nevus of lip 216.0 Active Problem Screening of Streptococcus B V28.6 Active Problem Routine gynecological examination V72.31 Active Medications No Known Medications Procedures Procedure Coding System Code Date Office Visit, Est Pt., Level 3 CPT-4 33865 Mar 15, 2015 Vital Signs Date/Time: Mar 15, 2015 Temperature 96.7 F Weight 180.0 lbs Height 66 in BMI 29.05 Index Blood Pressure Diastolic 60 mmHg Blood Pressure Systolic 112 mmHg Cardiac Monitoring Heart Rate 84 bpm Results No Known Results Summary Purpose eClinicalWorks Submission
--- OUTSIDE RECORDS SUMMARY | 2017-07-02 05:38 | XMS REPORT ---
Author KEN Manzo [facility] eClinicalWorks Address Unknown Phone Unavailable Care Team Providers Care Agent Licensing Clerk Name Role Phone KEN CLARK CP Unavailable Allergies, Adverse Reactions, Alerts Substance [...] Problem Routine gynecological examination V72.31 Active Assessment Pain of left foot M79.672 Active Problem Threatened premature labor, unspecified as to episode of care 644.00 Active Problem Surveillance of previously prescribed intrauterine contraceptive device V25.42 Active Medications Medication Code System Code Instructions Start Date End Date Status Dosage Depo-Medrol [facility] [address]-35 40 MG/ML Injection daily May 29, 2015Jun 1 drop Naproxen [facility] [address]-04 375 MG Orally Twice a day May 29, 2015 Jun 08, 2015 1 tablet Procedures Procedure Coding System Code Date THER/PROPH/DIAG INJ, SC/IM CPT-4 44047 May 29, 2015 Office Visit, Est Pt., Level 3 CPT-4 31511 May 29, 2015 DEPO MEDROL 40 MG/ML CPT-4 J1030 May 29, 2015 Vital Signs Date/Time: May 29, 2015 Temperature 97.8 F Weight 182.6 lbs Height 66 in BMI 29.47 Index Blood Pressure Diastolic 74 mmHg Blood Pressure Systolic 112 mmHg Cardiac Monitoring Heart Rate 88 bpm Results No Known Results Summary Purpose eClinicalWorks Submission
--- OUTSIDE RECORDS SUMMARY | 2017-07-02 05:39 | XMS REPORT ---
Author MICHAEL Barone [facility] eClinicalWorks Address Unknown Phone Unavailable Care Team Providers Care Toy Consultant Name Role Phone MICHAEL MARLEY CP Unavailable Allergies, Adverse Reactions, Alerts Substance Reaction Event Type Bee Venom Info Not Available Non Drug Allergy Problems Problem Type Condition Code Onset Dates Condition Status Assessment Stress headaches F45.41 Active Assessment Hand, foot and mouth disease B08.4 Active Problem Special screening examination, human papillomavirus [HPV] V73.81 Active Problem Infections of genitourinary tract in , unspecified as to episode of care 646.60 Active Problem Screening for malignant neoplasm of the cervix V76.2 Active Problem Abdominal pain, other specified site 789.09 Active Problem Unspecified breast screening V76.10 Active Problem Acute sinusitis, unspecified 461.9 Active Problem Dysmenorrhea 625.3 Active Problem Encounter for dental examination Z01.20 Active Problem Pain of left foot M79.672 Active Problem Leukorrhea, not specified as infective 623.5 Active Problem Routine follow-up V24.2 Active Problem Stress headaches F45.41 Active Problem Need for prophylactic vaccination and inoculation, Influenza V04.81 Active Problem DTAP TEST V06.1 Active Problem Nausea with vomiting 787.01 Active Problem Dysplastic nevus of lip 216.0 Active Problem UTI (urinary tract infection) 599.0 Active Problem Screening of Streptococcus B V28.6 Active Problem Threatened premature labor, unspecified as to episode of care 644.00 Active Problem Urinary tract infection, site not specified 599.0 Active Problem Corpus luteum cyst or hematoma 620.1 Active Problem Routine gynecological examination V72.31 Active Problem Surveillance of previously prescribed intrauterine contraceptive device V25.42 Active Problem Supervision of other normal V22.1 Active Problem Screening examination for venereal disease V74.5 Active Medications No Known Medications Procedures Procedure Coding System Code Date Office Visit, Est Pt., Level 3 CPT-4 25309 Apr 25, 2016 Vital Signs Date/Time: Apr 25, 2016 Cardiac Monitoring Heart Rate 88 bpm Weight 181.0 lbs Height 66 in BMI 29.21 Index Blood Pressure Diastolic 83 mmHg Blood Pressure Systolic 117 mmHg Results No Known Results Summary Purpose eClinicalWorks Submission
--- OUTSIDE RECORDS SUMMARY | 2017-07-02 05:39 | XMS REPORT ---
Author AKILAH Ricci [facility] eClinicalWorks Address Unknown Phone Unavailable Care Team Providers Care Cell Tuber Hand Name Role Phone AKILAH GOLD CP Unavailable Allergies, Adverse Reactions, Alerts Substance [...] Problem Routine gynecological examination V72.31 Active Assessment Pharyngitis, unspecified etiology J02.9 Active Problem Threatened premature labor, unspecified as to episode of care 644.00 Active Problem Surveillance of previously prescribed intrauterine contraceptive device V25.42 Active Medications Medication Code System Code Instructions Start Date End Date Status Dosage PredniSONE [facility] [address]-44 20 mg Orally Once a day February 02, 2016January 2 tablets Amoxicillin [facility] [address]-72 500 MG Orally 3 times a day February 02, 2016 February 12, 2016 1 capsule Promethazine-Codeine [facility] [address]-02 6.25-10 MG/5ML Orally every 6 hrs February 02, 2016 5 ml as needed Procedures Procedure Coding System Code Date Office Visit, Est Pt., Level 3 CPT-4 01314 February 02, 2016 Vital Signs Date/Time: February 02, 2016 Cardiac Monitoring Heart Rate 68 bpm Weight 180.2 lbs Height 66 in Blood Pressure Diastolic 60 mmHg Blood Pressure Systolic 106 mmHg Results No Known Results Summary Purpose eClinicalWorks Submission
[2017-07-02 05:57] LABS: BILIRUBIN,URINE NEGATIVE (NEGATIVE); KETONES,URINE NEGATIVE (NEGATIVE); LEUKOCYTE ESTERASE ,URINE 3+ (NEGATIVE); NITRITE,URINE NEGATIVE (NEGATIVE); PH,URINE 8 (5-9); PROTEIN,URINE 3+ (NEGATIVE); UROBILINOGEN,URINE NORMAL (NORMAL)
[2017-07-02] MEDS ORDERED: ONDANSETRON 4 MG/2 ML (SDV) Z0FRAN IVP ONE (06:00)
[2017-07-02 06:04] LABS: WBC,URINE TNTC /HPF
[2017-07-02 06:05] LABS: TRIPLE PHOSPHATE CRYSTAL,UR FEW /LPF
[2017-07-02] MEDS ORDERED: NS IV 1000 ML 1,000 ML IV ONE (06:21)
[2017-07-02 06:23] LABS: BASOPHILS % (AUTO) 0 % (0-10); EOSINOPHILS # (AUTO) 0.1 10^3/uL (0.0-0.3); EOSINOPHILS % (AUTO) 1 % (0-10); LYMPHOCYTES # (AUTO) 1.3 X 10^3 (1.0-4.0); LYMPHOCYTES % (AUTO) 12 % (12-44); MEAN CORPUSCULAR HEMOGLOBIN 30 PG (25-34); MEAN CORPUSCULAR HGB CONC 32 G/DL (32-36); MEAN CORPUSCULAR VOLUME 91 FL (80-99); MEAN PLATELET VOLUME 11.2 FL (7.4-10.4); MONOCYTES # (AUTO) 0.7 X 10^3 (0.0-1.0); MONOCYTES % (AUTO) 6 % (0-12); NEUTROPHILS # (AUTO) 8.9 X 10^3 (1.8-7.8); NEUTROPHILS % (AUTO) 81 % (42-75); PLATELET COUNT 164 10^3/uL (130-400); RED BLOOD COUNT 3.29 10^6/uL (4.35-5.85); RED CELL DISTRIBUTION WIDTH 12.6 % (10.0-14.5)
--- NOTE | 2017-07-02 06:31 | ED GU-Female ---
General Chief Complaint: -Female Stated Complaint: AB PAIN Nursing Triage Note: C/O LOWER ABDOMINAL/BACK PAIN, URINARY RETENTION Nursing Sepsis Screen: No Definite Risk Source: patient Exam Limitations: no limitations History of Present Illness Time seen by provider: 06:00 Initial Comments Here with report of urinary retention that is similar to her presentation yesterday. Recent robot-assisted total hysterectomy and bladder sling procedure. Has had urinary retention problems since the procedure. She did have straight catheter yesterday which produced a significant amount of urine. Cultures were pending from yesterday's results are concerning for gram-negative rods. Patient has had nausea and is not feeling well. Complains of pressure in her abdomen and back since yesterday. She was unable to get a significant stream going despite trying different ways including warm water stream and positioning. Knowles catheter was placed shortly after arrival and pain has significantly reduced. States that she's not been able to eat or drink well because of the pain and urinary retention problems. Timing/Duration: getting worse Severity/Quality: moderate, other (pressure) Location: suprapubic Radiation: back Activities at Onset: none Modifying Factors: Worsens With Movement, Improves With Urinating Associated Symptoms: abdominal pain, No diaphoresis, No dysuria, No fever/ chills, lower back pain, nausea/vomiting Allergies and Home Medications Allergies Coded Allergies: No Known Drug Allergies (Unverified , 06/25/17) Home Medications Docusate Sodium 100 Mg Capsule, 100 MG PO BID, #60 Prescribed by: ROBINA DELEON on 06/29/17 1259 Ibuprofen 800 Mg Tablet, 800 MG PO Q4H PRN for PAIN, #60 Prescribed by: ROBINA DELEON on 06/29/17 1259 Multivit with Calcium,Iron,Min 1 Each Tablet, 1 EACH PO DAILY, (Reported) Norgestimate-Ethinyl Estradiol 1 Each Tablet, 1 EACH PO DAILY for 90 Days, #90 Ref 4 Prescribed by: ROBINA DELEON on 06/29/17 1259 Oxycodone HCl/Acetaminophen 1 Each Tablet, 1-2 TAB PO Q4H PRN for PAIN, #60 Ref 0 Prescribed by: ROBINA DELEON on 06/29/17 1259 Constitutional: see HPI, No chills, No fever EENTM: no symptoms reported Respiratory: no symptoms reported Cardiovascular: no symptoms reported Gastrointestinal: abdominal pain, No diarrhea, nausea, No vomiting Genitourinary: see HPI, pain : No Musculoskeletal: no symptoms reported Skin: no symptoms reported All Other Systemes Reviewed Negative Unless Noted: Yes Past Jpmqwku-Kdotdk-Eoqyvl Hx Patient Social History Alcohol Use: Denies Use Recreational Drug Use: No Smoking Status: Never a Smoker Recent Foreign Travel: No Contact w/Someone Who Travel: No Recent Infectious Disease Expo: No Recent Hopitalizations: Yes Immunizations Up To Date Tetanus Booster (TDap): Unknown PED Vaccines UTD: No Seasonal Allergies Seasonal Allergies: No Surgeries History of Surgeries: Yes (BREAST REDUCTION) Surgeries: Bladder Surgery, Breast, Hysterectomy Respiratory History of Respiratory Disorde: No Cardiovascular History of Cardiac Disorders: No Neurological History of Neurological Disord: No Reproductive System : No Hx Reproductive Disorders: Yes (CPP, CYSTOCELE) Sexually Transmitted Disease: No HIV/AIDS: No Female Reproductive Disorders: Endometriosis, 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 Genitourinary History of Genitourinary Disor: Yes Genitourinary Disorders: Kidney Infection, UTI-Chronic Gastrointestinal History of Gastrointestinal Di: No Musculoskeletal History of Musculoskeletal Dis: No Endocrine History of Endocrine Disorders: No HEENT History of HEENT Disorders: No Loss of Vision: Denies Hearing Impairment: Denies Cancer History of Cancer: No Psychosocial History of Psychiatric Problem: No Integumentary History of Skin or Integumenta: No Blood Transfusions History of Blood Disorders: No Adverse Reaction to a Blood Tr: No (N/A) Reviewed Nursing Assessment Reviewed/Agree w Nursing PMH: Yes Family Medical History Significant Family History: Asthma Physical Exam Vital Signs Vital Sign - Last 12Hours 07/02/17 05:47 Temp 98.2 Pulse 88 Resp 16 B/P (MAP) 116/74 (88) Pulse Ox 94 O2 Delivery Room Air Capillary Refill : Less Than 3 Seconds General Appearance: WD/WN, no apparent distress Neck: full range of motion, supple Cardiovascular: regular rate, rhythm, no murmur Respiratory: lungs clear, normal breath sounds Gastrointestinal: soft, tenderness (mild suprapubic), other (exam after Knowles catheter placed) Back: normal inspection, no CVA tenderness, no vertebral tenderness Extremities: non-tender, normal inspection Neurologic/Psychiatric: alert, oriented x 3 Skin: normal color, warm/dry Focused Exam Evaluation Lactate Level Laboratory Tests 07/02/17 06:20: Lactic Acid Level 0.86 Lactic Acid Level Laboratory Tests Test 07/02/17 06:20 Lactic Acid Level 0.86 MMOL/L (0.50-2.00) Progress/Results/Core Measures Suspected Sepsis Recent Fever Within 48 Hours: No Infection Criteria Present: None New/Unexplained Altered Menta: No Sepsis Screen: No Definite Risk Sepsis Diagnosis: SIRS Temperature:98.2 Pulse: 88 Respiratory Rate: 16 Laboratory Tests 07/02/17 06:10: White Blood Count 11.0 Blood Pressure 116 /74 Mean: 88 Laboratory Tests 07/02/17 06:20: Lactic Acid Level 0.86 Laboratory Tests 07/02/17 06:10: Creatinine 0.79, Platelet Count 164 Results/Orders Lab Results Laboratory Tests Test 07/02/17 05:45 07/02/17 06:10 07/02/17 06:20 Range/Units Urine Color YELLOW Urine Clarity VERY CLOUDY H Urine pH 8 5-9 Urine Specific [place] 1.010 L 1.016-1.022 Urine Protein 3+ H NEGATIVE Urine Glucose (UA) NEGATIVE NEGATIVE Urine Ketones NEGATIVE NEGATIVE Urine Nitrite NEGATIVE NEGATIVE Urine Bilirubin NEGATIVE NEGATIVE Urine Urobilinogen NORMAL NORMAL MG/DL Urine Leukocyte Esterase 3+ H NEGATIVE Urine RBC (Auto) 4+ H NEGATIVE Urine RBC 2-5 H /HPF Urine WBC TNTC H /HPF Urine Squamous Epithelial Cells NONE /HPF Urine Crystals PRESENT H /LPF Urine Triple Phosphate Crystals FEW H /LPF Urine Bacteria LARGE H /HPF Urine Casts NONE /LPF Urine Mucus NEGATIVE /LPF Urine Culture Indicated YES White Blood Count 11.0 4.3-11.0 10^3/uL Red Blood Count 3.29 L 4.35-5.85 10^6/uL Hemoglobin 9.7 L 11.5-16.0 G/DL Hematocrit 30 L 35-52 % Mean Corpuscular Volume 91 80-99 FL Mean Corpuscular Hemoglobin 30 25-34 PG Mean Corpuscular Hemoglobin Concent 32 32-36 G/DL Red Cell Distribution Width 12.6 10.0-14.5 % Platelet Count 164 130-400 10^3/uL Mean Platelet Volume 11.2 H 7.4-10.4 FL Neutrophils (%) (Auto) 81 H 42-75 % Lymphocytes (%) (Auto) 12 12-44 % Monocytes (%) (Auto) 6 0-12 % Eosinophils (%) (Auto) 1 0-10 % Basophils (%) (Auto) 0 0-10 % Neutrophils # (Auto) 8.9 H 1.8-7.8 X 10^3 Lymphocytes # (Auto) 1.3 1.0-4.0 X 10^3 Monocytes # (Auto) 0.7 0.0-1.0 X 10^3 Eosinophils # (Auto) 0.1 0.0-0.3 10^3/uL Basophils # (Auto) 0.0 0.0-0.1 10^3/uL Sodium Level 139 135-145 MMOL/L Potassium Level 3.4 L 3.6-5.0 MMOL/L Chloride Level 106 98-107 MMOL/L Carbon Dioxide Level 25 21-32 MMOL/L Anion Gap 8 5-14 MMOL/L Blood Urea Nitrogen 10 7-18 MG/DL Creatinine 0.79 0.60-1.30 MG/DL Estimat Glomerular Filtration Rate > 60 BUN/Creatinine Ratio 13 Glucose Level 87 70-105 MG/DL Calcium Level 8.8 8.5-10.1 MG/DL Lactic Acid Level 0.86 0.50-2.00 MMOL/L My Orders Orders - BOONE ART MD Lactic Acid Analyzer (07/02/17 06:21) Blood Culture (07/02/17 06:21) Ns Iv 1000 Ml (Sodium Chloride 0.9%) (07/02/17 06:21) Ceftriaxone Injection (Rocephin Injectio (07/02/17 06:45) Medications Given in ED Current Medications Medications Dose Ordered Sig/Darleen Route Start Time Stop Time Status Last Admin Dose Admin Ceftriaxone Sodium 1000 mg/ Sodium Chloride 50 ml @ 100 mls/hr ONCE ONCE IV 07/02/17 06:45 07/02/17 07:14 DC 07/02/17 06:40 100 MLS/HR Ondansetron HCl 4 mg ONCE ONCE IVP 07/02/17 06:00 07/02/17 06:02 DC 07/02/17 06:09 4 MG Sodium Chloride 1,000 ml @ 0 mls/hr Q0M ONCE IV 07/02/17 06:21 07/02/17 06:23 DC 07/02/17 06:39 0 MLS/HR Vital Signs/I&O Vital Sign - Last 12Hours 07/02/17 05:47 Temp 98.2 Pulse 88 Resp 16 B/P (MAP) 116/74 (88) Pulse Ox 94 O2 Delivery Room Air Capillary Refill : Less Than 3 Seconds Blood Pressure Mean: 88 Progress Note : Progress Note Seen and evaluated. IV, labs, Knowles catheter and UA ordered. Zofran 4 mg IV. Normal saline 1 L bolus. Blood cultures and lactic acid ordered and Rocephin 1 g IV ordered afterwards. Monitor patient. 0700: Seen by Dr. Nina in the emergency department. Offered admission versus discharge with follow-up on Sunday. Patient is elected for discharge at this point. We will continue outpatient antibiotic and add Urecholine. He will see the patient in office on Sunday at 1 p.m. We will continue Knowles catheter at this point. 0740: Fluids complete. Discharged home with return precautions. Patient verbalize understanding instructions and agreement with plan. Departure Impression Impression: Primary Impression: Urinary tract infection Qualified Codes: N30.01 - Acute cystitis with hematuria Additional Impression: Postoperative urinary retention Disposition: HOME, SELF-CARE Condition: Improved Departure-Patient Inst. Decision time for Depature: 07:42 Referrals: NO,LOCAL PHYSICIAN (PCP/Family) Primary Care Physician Patient Instructions: Urinary Retention (DC), Urinary Tract Infection, Adult ( DC) Add. Discharge Instructions: All discharge instructions reviewed with patient and/or family. Voiced understanding. Keep Knowles catheter in place. Start medications as directed. Follow-up with Dr. Nina on Sunday at 1 p.m. Return for worse pain, fever, vomiting, weakness, breathing problems or other concerns as needed. Scripts Bethanechol Chloride (Urecholine) 25 Mg Tablet 25 MG PO ACHS, #28 TAB 0 Refills Prov: BOONE ART MD 07/02/17 Nitrofurantoin Macrocrystal (Nitrofurantoin) 100 Mg Capsule 100 MG PO BID, #14 CAP 0 Refills Prov: BOONE ART MD 07/02/17 Copy Copies To 1: EUGENIA NINA MD, TIMOTHY D MD Jul 02, 2017 06:31
[2017-07-02 06:45] LABS: ANION GAP 8 MMOL/L (5-14); BLOOD UREA NITROGEN 10 MG/DL (7-18); BUN/CREATININE RATIO 13; CALCIUM 8.8 MG/DL (8.5-10.1); CARBON DIOXIDE 25 MMOL/L (21-32); CHLORIDE 106 MMOL/L (98-107); CREATININE SERUM 0.79 MG/DL (0.60-1.30); GFR ESTIMATED > 60; GLUCOSE 87 MG/DL (70-105); POTASSIUM 3.4 MMOL/L (3.6-5.0); SODIUM 139 MMOL/L (135-145)
[2017-07-02] MEDS ORDERED: cefTRIAXone INJECTION 1,000 MG in NS (IVPB) 50 ML IV ONE (06:45)
[2017-07-02] MEDS ORDERED: BETH25TA11 PO (07:45)
[2017-07-02] MEDS ORDERED: NITR100C PO (07:45)
[2017-07-02 08:05] VITALS: BP 122/80
== END 2017-07-02 08:05 | disposition home or self-care (01) ==
LOC: EDUNIT# 05:30 → ER 05:32
DX: T81.4XXA Infection following a procedure, initial encounter (principal); N39.0 Urinary tract infection, site not specified; Z87.42 Personal history of other diseases of the female genital tract; Z90.710 Acquired absence of both cervix and uterus
CPT/HCPCS: 36415; 51702; 80048; 81000; 83605; 85025; 87040; 87077; 87088

== ENCOUNTER 2019-05-24 23:12 | Emergency (ER) | payer BC, OTHER ==
[~2019-05-24] VITALS: Ht 170.1 cm; Wt 91.3 kg
[~2019-05-24 23:12] MED LIST changes: +BETH25TA11 PO; +NITR100C PO; -OXYC-202 PO; +OXYC1TAB12 PO
[2019-05-25] MEDS ORDERED: ONDANSETRON 4 MG (ZOFRAN) ORAL DISSOLVE TAB PO STA (00:24)
[2019-05-25 01:15] VITALS: BP 120/75
[2019-05-25] MEDS ORDERED: RX-ONDANSETRON 4 MG ODT (ZOFRAN) PPK #4 PO STA (01:48)
[2019-05-25] MEDS ORDERED: ONDA8TAB13 PO (01:51)
[2019-05-25] MEDS ORDERED: LACT1CAP8 PO (01:51)
--- NOTE | 2019-05-25 01:51 | ED GI ---
General Chief Complaint: General Problems/Pain Stated Complaint: FEVER, VOMITING, BODY ACHES Nursing Triage Note: AMBULATORY TO ED WITH C/O WAKING UP THIS MORNING FEELING NAUSEATED, COLD, CHILLS, BODY ACHES, HEADACHE, VOMITING. Sepsis Screen: Possible Sepsis Risk Allergies and Home Medications Allergies Coded Allergies: No Known Drug Allergies (Unverified , 06/25/17) Home Medications Bethanechol Chloride 25 Mg Tablet, 25 MG PO ACHS Prescribed by: BOONE ART on 07/02/17 0745 Docusate Sodium 100 Mg Capsule, 100 MG PO BID Prescribed by: ROBINA DELEON on 06/29/17 1259 Ibuprofen 800 Mg Tablet, 800 MG PO Q4H PRN for PAIN Prescribed by: ROBINA DELEON on 06/29/17 1259 Multivit with Calcium,Iron,Min 1 Each Tablet, 1 EACH PO DAILY, (Reported) Nitrofurantoin Macrocrystal 100 Mg Capsule, 100 MG PO BID Prescribed by: BOONE ART on 07/02/17 0745 Norgestimate-Ethinyl Estradiol 1 Each Tablet, 1 EACH PO DAILY Prescribed by: ROBINA DELEON on 06/29/17 1259 Oxycodone HCl/Acetaminophen 1 Each Tablet, 1-2 TAB PO Q4H PRN for PAIN Prescribed by: ROBINA DELEON on 06/29/17 1259 Past Boimoxl-Scjqah-Pzwjjt Hx Patient Social History Alcohol Use: Occasionally Uses Recreational Drug Use: No Smoking Status: Never a Smoker Recent Foreign Travel: No Contact w/Someone Who Travel: No Recent Infectious Disease Expo: No Recent Hopitalizations: Yes Physical Abuse: No Sexual Abuse: No Mistreated: No Fear: No Immunizations Up To Date Tetanus Booster (TDap): Unknown PED Vaccines UTD: No Seasonal Allergies Seasonal Allergies: No Past Medical History Surgeries: Yes (BREAST REDUCTION) Bladder Surgery, Breast, Hysterectomy Respiratory: No Cardiac: No Neurological: No Reproductive Disorders: Yes (CPP, CYSTOCELE) Female Reproductive Disorders: Endometriosis, Ovarian 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 0.0oz. 83.900663ws; 31.00 BMI Method:Stated Progress/Results/Core Measures Results/Orders Lab Results Laboratory Tests Test 05/25/19 00:12 Range/Units Group A Streptococcus Screen NEGATIVE NEGATIVE Micro Results Microbiology 05/25/19 Influenza Types A,B Antigen (JORGE) - Final, Complete My Orders Orders - JAZZY DUGAN DO Rapid Strep A Screen (05/24/19 23:45) Influenza A And B Antigens (05/24/19 23:45) Ondansetron Oral Dissolve Tab (Zofran (05/25/19 00:24) Acetaminophen Tablet (Tylenol Tablet) (05/25/19 02:00) Rx-Ondansetron Po (Rx-Zofran Po) (05/25/19 01:48) Vital Signs/I&O 05/24/19 23:41 Temp 37.1 Pulse 105 Resp 20 B/P (MAP) 120/74 (89) Blood Pressure Mean: 89 POS Departure Impression Primary Impression: Gastroenteritis Additional Impression: POSSIBLE FOOD POISONING Disposition: 01 HOME, SELF-CARE Condition: Improved Departure-Patient Inst. [place]: [facility] [place]ructions: Food Poisoning (DC), [id number] Add. Discharge Instructions: CLEAR LIQUIDS--WATER, BROTH, JELLO, GATORADE WHEN YOUR NAUSEA AND VOMITING IS GONE, ADD BRATS DIET TO CLEAR LIQUIDS--BANANAS, RICE, APPLESAUCE, TOAST, SALTINES FOLLOW UP WITH YOUR DR IN 1-2 DAYS IF NO BETTER, RETURN TO ER IF WORSE All discharge instructions reviewed with patient and/or family. Voiced understanding. Scripts Ondansetron (Ondansetron Odt) 8 Mg Tab.rapdis 8 MG PO Q6H for Nausea/Vomiting, #10 TAB Prov: JAZZY DUGAN DO 05/25/19 Lactobacillus Acidophilus (Acidophilus) 1 Each Capsule 2 EACH PO QID, #80 CAP Prov: JAZZY DUGAN DO 05/25/19 JAZZY DUGAN DO May 25, 2019 01:51 POS
[2019-05-25] MEDS ORDERED: ACETAMINOPHEN 500 MG TAB (TYLENOL) PO ONE (02:00)
== END 2019-05-25 01:15 | disposition home or self-care (01) ==
LOC: EDUNIT# 23:12 → ER 23:14
DX: K52.9 Noninfective gastroenteritis and colitis, unspecified (principal); Z90.710 Acquired absence of both cervix and uterus; Z87.440 Personal history of urinary (tract) infections
CPT/HCPCS: 87430; 87804

== ENCOUNTER → 2020-03-15 | Outpatient (CLI) | payer OTHER ==
[~2020-03-15] MED LIST changes: +LACT1CAP8 PO
--- NOTE | 2020-03-15 11:26 | Diagnostic Imaging Report ---
INDICATION: Left lower leg pain. TECHNIQUE: Multiple real-time grayscale images were obtained over the left lower extremity in various projections, bilaterally. Additional duplex Doppler and color Doppler images were also obtained. CORRELATION STUDY: None FINDINGS: Findings are positive for occlusive clot within the left leg. Clot originates within the calf veins extending into the peroneal vein. More centrally, the larger veins including the popliteal vein, femoral vein in the thigh and common femoral vein are unremarkable. No soft tissue fluid collection. IMPRESSION: 1. Findings are positive for clot within the left leg involving the calf veins extending into the peroneal vein. The larger veins of the left leg are otherwise currently unremarkable. Findings were relayed by the grocery manager at time of imaging. Dictated by: Dictated on workstation # [id number]
== END ==
LOC: RAD 10:13
PROVIDERS: ATTEND Nurse Practitioner Family
DX: I82.402 Acute embolism and thrombosis of unspecified deep veins of left lower extremity (principal)

== ENCOUNTER 2020-03-17 16:40 | Emergency (ER) | payer OTHER ==
[~2020-03-17] VITALS: Ht 162.6 cm; Wt 91.6 kg
--- NOTE | 2020-03-17 16:56 | ED Headache ---
General Stated Complaint: HEADACHE History of Present Illness Date Seen by Provider: Mar 17, 2020 Time Seen by Provider: 16:51 Initial Comments Patient presents to ED with complaints of headache. States she was recently diagnosed with a LLE DVT and started on Xarelto. Her PCP recommended she come to the ED with her CAMACHO due to recent starting of Xarelto. Timing/Duration: 4-6 hours, constant Severity/Quality: severe, sharp Location: frontal Prior Headaches/Recent Trauma: no recent headache/trauma Modifying Factors: worse with exposure to light, worse with movement; improves with rest Associated Symptoms: No confusion, No fever/chills, No loss of consciousness; nausea/vomiting; No vision changes Allergies and Home Medications Allergies Coded Allergies: No Known Drug Allergies (Unverified , 06/25/17) Home Medications Bethanechol Chloride 25 Mg Tablet, 25 MG PO ACHS Prescribed by: BOONE ART on 07/02/17 0745 Docusate Sodium 100 Mg Capsule, 100 MG PO BID Prescribed by: ROBINA DELEON on 06/29/17 1259 Ibuprofen 800 Mg Tablet, 800 MG PO Q4H PRN for PAIN Prescribed by: ROBINA DELEON on 06/29/17 1259 Lactobacillus Acidophilus 1 Each Capsule, 2 EACH PO QID Prescribed by: JAZZY DUGAN on 05/25/19 015 Multivit with Calcium,Iron,Min 1 Each Tablet, 1 EACH PO DAILY, (Reported) Nitrofurantoin Macrocrystal 100 Mg Capsule, 100 MG PO BID Prescribed by: BOONE ART on 07/02/17 0745 Norgestimate-Ethinyl Estradiol 1 Each Tablet, 1 EACH PO DAILY Prescribed by: ROBINA DELEON on 06/29/17 1259 Ondansetron 8 Mg Tab.rapdis, 8 MG PO Q6H Prescribed by: JAZZY DUGAN on 05/25/19 0151 Oxycodone HCl/Acetaminophen 1 Each Tablet, 1-2 TAB PO Q4H PRN for PAIN Prescribed by: ROBINA DELEON on 06/29/17 1259 Patient Home Medication List Home Medication List Reviewed: Yes Review of Systems Review of Systems Constitutional: no symptoms reported, see HPI Eyes: See HPI; Denies Blurred Vision; Photophobia; Denies Vision Changes Ears, Nose, Mouth, Throat: no symptoms reported, see HPI Respiratory: no symptoms reported, see HPI Cardiovascular: no symptoms reported, see HPI Gastrointestinal: no symptoms reported, see HPI Genitourinary: no symptoms reported, see HPI : No Musculoskeletal: no symptoms reported, see HPI Skin: no symptoms reported, see HPI; No change in color, No change in hair/nails Psychiatric/Neurological: Anxiety, Headache; Denies Numbness, Denies Paresthesia, Denies Tingling Past Gqxhagb-Tjrxmb-Hlhtzo Hx Patient Social History Recent Foreign Travel: No Contact w/Someone Who Travel: No Recent Hopitalizations: Yes Immunizations Up To Date Tetanus Booster (TDap): Unknown PED Vaccines UTD: No Seasonal Allergies Seasonal Allergies: No Past Medical History Surgeries: Yes (BREAST REDUCTION; HYST /BSO) Bladder Surgery, Breast, Hysterectomy, Oophorectomy Respiratory: No Cardiac: No Neurological: No Reproductive Disorders: Yes (CPP, CYSTOCELE; HYST/BSO) Female Reproductive Disorders: Endometriosis, 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 0.0oz. 83.633443of; 31.00 BMI Method:Stated General Appearance: WD/WN, moderate distress Neck: full range of motion, normal inspection Cardiovascular: normal peripheral pulses, no edema Respiratory: no respiratory distress, no accessory muscle use Back: normal inspection Extremities: normal inspection, no pedal edema Psychiatric: alert, oriented x 3 Crainal Nerves: normal speech, abnormal eye position Coordination/Gait: normal gait Motor/Sensory: no motor deficit, no sensory deficit Skin: normal color Lymphatic: no adenopathy Progress/Results/Core Measures Results/Orders My Orders Orders - KAREN KAY APRN Ketorolac Injection (Toradol Injection) (03/17/20 17:00) Diphenhydramine Injection (Benadryl Inje (03/17/20 17:00) Prochlorperazine Injection (Compazine In (03/17/20 17:00) Ct Head Wo (03/17/20 16:49) Medications Given in ED Current Medications Medications Dose Ordered Sig/Darleen Route Start Time Stop Time Status Last Admin Dose Admin Diphenhydramine HCl 25 mg ONCE ONCE IM 03/17/20 17:00 03/17/20 17:01 DC 03/17/20 17:09 25 MG Ketorolac Tromethamine 60 mg ONCE ONCE IM 03/17/20 17:00 03/17/20 17:01 DC 03/17/20 17:09 60 MG Prochlorperazine Edisylate 10 mg ONCE ONCE IM 03/17/20 17:00 03/17/20 17:01 DC 03/17/20 17:09 10 MG Vital Signs/I&O 03/17/20 16:45 Temp 36.8 Pulse 98 Resp 22 B/P (MAP) 98/70 (79) O2 Delivery Room Air Departure Impression Primary Impression: Headache Qualified Codes: R51 - Headache Disposition: 01 HOME, SELF-CARE Condition: Stable Departure-Patient Inst. Decision time for Depature: 18:01 Referrals: NO,LOCAL PHYSICIAN (PCP/Family) Primary Care Physician Patient Instructions: NO INSTRUCTIONS GIVEN Add. Discharge Instructions: 1. Return to ER if you have any concerns 2. Follow-up with your doctor within 48 hours for recheck 3. Medications prescribed KAREN KAY APRN Mar 17, 2020 16:56
[2020-03-17] MEDS ORDERED: PROCHLORPERAZINE 10 MG/2ML INJ (COMPAZINE) IM ONE (17:00)
[2020-03-17] MEDS ORDERED: KETOROLAC 60 MG/2 ML VIAL IM ONE (17:00)
[2020-03-17] MEDS ORDERED: diphenhydrAMINE 50 MG/ML INJ (BENADRYL) IM ONE (17:00)
--- NOTE | 2020-03-17 17:49 | Diagnostic Imaging Report ---
PROCEDURE: CT head without contrast. TECHNIQUE: Multiple contiguous axial images were obtained through the brain without the use of intravenous contrast. Auto Exposure Controls were utilized during the CT exam to meet ALARA standards for radiation dose reduction. INDICATION: Headache. COMPARISON: None available. FINDINGS: No intracranial hemorrhage. No intracranial mass, mass effect, midline shift, herniation, hydrocephalus, or extra-axial fluid collection. No definite CT evidence of an acute ischemic infarction. The orbits are unremarkable. Small mucous retention cyst within the left sphenoid sinus. Otherwise, the visualized paranasal sinuses are clear. The calvarium and extracalvarial soft tissues are unremarkable. IMPRESSION: 1. No acute intracranial abnormality. 2. Small mucous retention cyst within the left sphenoid sinus. Dictated by: Dictated on workstation # [id number]
[2020-03-17 18:14] VITALS: BP 109/71
== END 2020-03-17 18:14 | disposition home or self-care (01) ==
LOC: EDUNIT# 16:40 → ER 16:42
DX: R51 Headache (principal); N39.0 Urinary tract infection, site not specified
CPT/HCPCS: 70450

== ENCOUNTER 2020-06-21 13:31 | Outpatient (RCR) | payer OTHER ==
[2020-06-21 14:38] LABS: BASOPHILS % (AUTO) 0 % (0-10); EOSINOPHILS # (AUTO) 0.1 10^3/uL (0.0-0.3); EOSINOPHILS % (AUTO) 1 % (0-10); HEMATOCRIT 42 % (35-52); HEMOGLOBIN 13.6 g/dL (11.5-16.0); LYMPHOCYTES # (AUTO) 1.6 10^3/uL (1.0-4.0); LYMPHOCYTES % (AUTO) 26 % (12-44); MEAN CORPUSCULAR HEMOGLOBIN 30 pg (25-34); MEAN CORPUSCULAR HGB CONC 32 g/dL (32-36); MEAN CORPUSCULAR VOLUME 92 fL (80-99); MEAN PLATELET VOLUME 10.5 fL (9.0-12.2); MONOCYTES # (AUTO) 0.4 10^3/uL (0.0-1.0); MONOCYTES % (AUTO) 7 % (0-12); NEUTROPHILS # (AUTO) 3.9 10^3/uL (1.8-7.8); NEUTROPHILS % (AUTO) 65 % (42-75); PLATELET COUNT 252 10^3/uL (130-400)
[2020-06-21 15:09] LABS: ALANINE AMINOTRANSFERASE 19 U/L (0-55); ALBUMIN 4.2 GM/DL (3.2-4.5); ALKALINE PHOSPHATASE 66 U/L (40-136); BILIRUBIN,TOTAL 0.4 MG/DL (0.1-1.0); BUN/CREATININE RATIO 12; CALCIUM 9.6 MG/DL (8.5-10.1); CARBON DIOXIDE 24 MMOL/L (21-32); CHLORIDE 103 MMOL/L (98-107); CREATININE SERUM 0.77 MG/DL (0.60-1.30); GFR ESTIMATED > 60; GLUCOSE 87 MG/DL (70-105); POTASSIUM 4.2 MMOL/L (3.6-5.0); SODIUM 139 MMOL/L (135-145); TOTAL PROTEIN 7.1 GM/DL (6.4-8.2)
== END 2020-09-19 | disposition home or self-care (01) ==
LOC: ONC 13:31
PROVIDERS: ATTEND Internal Medicine Hematology & Oncology
DX: I82.402 Acute embolism and thrombosis of unspecified deep veins of left lower extremity (principal); R53.82 Chronic fatigue, unspecified; Z90.710 Acquired absence of both cervix and uterus; Z98.890 Other specified postprocedural states
CPT/HCPCS: 80053; 81241; 85025; G0463; 99214

== ENCOUNTER → 2020-12-13 | Outpatient (CLI) | payer SELFPAY ==
[2020-12-13 14:11] LABS: BASOPHILS % (AUTO) 0 % (0-10); EOSINOPHILS # (AUTO) 0.1 10^3/uL (0.0-0.3); EOSINOPHILS % (AUTO) 1 % (0-10); HEMATOCRIT 43 % (35-52); HEMOGLOBIN 13.9 g/dL (11.5-16.0); LYMPHOCYTES # (AUTO) 2.2 10^3/uL (1.0-4.0); LYMPHOCYTES % (AUTO) 27 % (12-44); MEAN CORPUSCULAR HEMOGLOBIN 29 pg (25-34); MEAN CORPUSCULAR HGB CONC 32 g/dL (32-36); MEAN CORPUSCULAR VOLUME 91 fL (80-99); MEAN PLATELET VOLUME 10.7 fL (9.0-12.2); MONOCYTES # (AUTO) 0.6 10^3/uL (0.0-1.0); MONOCYTES % (AUTO) 8 % (0-12); NEUTROPHILS # (AUTO) 5.2 10^3/uL (1.8-7.8); NEUTROPHILS % (AUTO) 64 % (42-75); PLATELET COUNT 244 10^3/uL (130-400); WHITE BLOOD COUNT 8.1 10^3/uL (4.3-11.0)
[2020-12-13 14:32] LABS: ALANINE AMINOTRANSFERASE 13 U/L (0-55); ALBUMIN 4.2 GM/DL (3.2-4.5); ALKALINE PHOSPHATASE 64 U/L (40-136); BILIRUBIN,TOTAL 0.2 MG/DL (0.1-1.0); BUN/CREATININE RATIO 13; CALCIUM 9.2 MG/DL (8.5-10.1); CARBON DIOXIDE 29 MMOL/L (21-32); CHLORIDE 104 MMOL/L (98-107); CREATININE SERUM 0.83 MG/DL (0.60-1.30); GFR ESTIMATED > 60; GLUCOSE 86 MG/DL (70-105); POTASSIUM 3.9 MMOL/L (3.6-5.0); SODIUM 139 MMOL/L (135-145); TOTAL PROTEIN 7.1 GM/DL (6.4-8.2)
== END ==
LOC: EDSTATUS 09-20 16:08 → ONC 14:01
PROVIDERS: ATTEND Internal Medicine Hematology & Oncology
DX: I82.409 Acute embolism and thrombosis of unspecified deep veins of unspecified lower extremity (principal); R53.82 Chronic fatigue, unspecified; Z90.710 Acquired absence of both cervix and uterus; Z98.86 Personal history of breast implant removal
CPT/HCPCS: 80053; 85025; G0463; 99213

== ENCOUNTER → 2021-06-27 | Outpatient (CLI) | payer BC ==
--- NOTE | 2021-06-27 18:01 | Diagnostic Imaging Report ---
EXAMINATION: Lumbosacral spine 2 or 3 views HISTORY: Low back pain COMPARISON: None available. FINDINGS: Alignment is normal. No fracture is seen. Disc spaces are normal. IMPRESSION: 1. No fracture in the lumbar spine. Dictated by: Dictated on workstation # [id number]
== END ==
LOC: RAD 16:32
PROVIDERS: ATTEND Nurse Practitioner Family
DX: M54.41 Lumbago with sciatica, right side (principal); F33.9 Major depressive disorder, recurrent, unspecified; E66.9 Obesity, unspecified; G90.09 Other idiopathic peripheral autonomic neuropathy; M62.838 Other muscle spasm
CPT/HCPCS: 72100

== ENCOUNTER 2023-01-14 14:57 | Emergency (ER) | payer BC ==
[~2023-01-14] VITALS: Ht 170.1 cm; Wt 100.0 kg
[2023-01-14 15:10] VITALS: BP 114/76
== END 2023-01-14 15:30 | disposition left against medical advice (07) ==
LOC: EDUNIT# 14:57 → ER 15:00
DX: M79.662 Pain in left lower leg (principal); Z28.310 Unvaccinated for COVID-19
CPT/HCPCS: 99281

== ENCOUNTER 2023-06-05 18:08 | Emergency (ER) | payer BC ==
[~2023-06-05] VITALS: Ht 170 cm; Wt 103.0 kg
[2023-06-05 18:15] VITALS: BP 126/84
[2023-06-05 18:36] LABS: BASOPHILS % (AUTO) 0 % (0-10); EOSINOPHILS # (AUTO) 0.1 10^3/uL (0.0-0.3); EOSINOPHILS % (AUTO) 1 % (0-10); HEMATOCRIT 42 % (35-52); HEMOGLOBIN 13.6 g/dL (11.5-16.0); LYMPHOCYTES # (AUTO) 1.9 10^3/uL (1.0-4.0); LYMPHOCYTES % (AUTO) 26 % (12-44); MEAN CORPUSCULAR HEMOGLOBIN 30 pg (25-34); MEAN CORPUSCULAR HGB CONC 32 g/dL (32-36); MEAN CORPUSCULAR VOLUME 91 fL (80-99); MEAN PLATELET VOLUME 10.9 fL (9.0-12.2); MONOCYTES # (AUTO) 0.6 10^3/uL (0.0-1.0); MONOCYTES % (AUTO) 8 % (0-12); NEUTROPHILS # (AUTO) 4.7 10^3/uL (1.8-7.8); NEUTROPHILS % (AUTO) 64 % (42-75); PLATELET COUNT 248 10^3/uL (130-400); WHITE BLOOD COUNT 7.4 10^3/uL (4.3-11.0)
--- NOTE | 2023-06-05 18:42 | ED Chest Pain ---
General Chief Complaint: Cardiac/General Problems Stated Complaint: PULMONARY EMBOLIZAM Nursing Triage Note: SENT FROM [facility] WITH POSSIBLE PE. PT COMPLAINS OF SOA, CHEST TIGHTNESS, AND COUGH STARTING YESTERDAY. PT HAS A HX OF DVT'S AND QUIT TAKING HER BLOOD THINNERS IN MAR ON HER OWN. Source: patient Exam Limitations: no limitations History of Present Illness Date Seen by Provider: Jun 05, 2023 Time Seen by Provider: 18:22 Initial Comments 32-year-old female presents to the ER with reports of shortness of air and chest pressure that started yesterday at 4 PM. She states that at times the chest pressure causes her to have a mild cough. Patient was at the [facility] clinic and was sent here for evaluation due to history of DVTs. Most recent DVT was in December after a surgery on her elbow. She was started on Eliquis, but stopped taking it in mid February. She states she stopped because she got busy and forgot. She had another previous DVT after she had a total hysterectomy approximately 1.5 years ago. She denies fevers, abdominal pain, nausea, vomiting, diarrhea. The pr evious DVTs were in her left calf, she states she always has a constant dull ache in her calf, states no change in this. She does report shortness of air is worse with exertion and with lying flat. Patient was seen at the [facility] clinic prior to coming here. They obtained an EKG which showed changes that could be related to a PE. Allergies and Home Medications Allergies Coded Allergies: No Known Drug Allergies (Unverified , 06/25/17) Patient Home Medication List Home Medication List Reviewed: Yes Bethanechol Chloride (Urecholine) 25 Mg Tablet, 25 MG PO ACHS Prescribed by: BOONE ART on 07/02/17 0797 Docusate Sodium (Colace) 100 Mg Capsule, 100 MG PO BID Prescribed by: ROBINA DELEON on 06/29/17 1259 Ibuprofen (Ibuprofen) 800 Mg Tablet, 800 MG PO Q4H PRN for PAIN Prescribed by: ROBINA DELEON on 06/29/17 1259 Lactobacillus Acidophilus (Acidophilus) 1 Each Capsule, 2 EACH PO QID Prescribed by: JAZZY DUGAN on 05/25/19 0151 Multivit with Calcium,Iron,Min (Women's Daily Formula) 1 Each Tablet, 1 EACH PO DAILY, (Reported) Entered as Reported by: KEV MCHUGH on 06/25/17 1108 Nitrofurantoin Macrocrystal (Nitrofurantoin) 100 Mg Capsule, 100 MG PO BID Prescribed by: BOONE ART on 07/02/17 0745 Norgestimate-Ethinyl Estradiol (Sprintec 28 Day Tablet) 1 Each Tablet, 1 EACH PO DAILY Prescribed by: ROBINA DELEON on 06/29/17 1259 Ondansetron (Ondansetron Odt) 8 Mg Tab.rapdis, 8 MG PO Q6H Prescribed by: JAZZY DUGAN on 05/25/19 0151 Oxycodone HCl/Acetaminophen (Percocet 10-325 mg Tablet) 1 Each Tablet, 1-2 TAB PO Q4H PRN for PAIN Prescribed by: ROBINA DELEON on 06/29/17 1259 Review of Systems Review of Systems Constitutional: see HPI Past Xrrhini-Qtynex-Ivavam Hx Patient Social History Tobacco Use?: No Substance use?: No Alcohol Use?: Yes Alcohol Frequency: Once in a while Immunizations Up To Date Tetanus Booster (TDap): Unknown PED Vaccines UTD: No First/Initial COVID19 Vaccinat: NO Seasonal Allergies Seasonal Allergies: No Past Medical History Surgery/Hospitalization HX: BLOOD CLOTS RIGHT ULNAR NERVE, TOTAL HYSTER, BREAST REDUCTION Surgeries: Yes (BREAST REDUCTION; HYST /BSO) Bladder Surgery, Breast, Hysterectomy, Oophorectomy Respiratory: No Cardiac: No Neurological: No Reproductive Disorders: Yes (CPP, CYSTOCELE; HYST/BSO) Female Reproductive Disorders: Endometriosis, Ovarian 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 [employer]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 0.0oz. 83.397704cd; 35.00 BMI Method:Stated General Appearance: No Apparent Distress, WD/WN Neck: Normal Inspection, Supple Respiratory: Lungs Clear, Normal Breath Sounds, No Accessory Muscle Use, No Respiratory Distress Cardiovascular: Regular Rate, Rhythm Extremity: Normal Inspection, Non Tender, No Calf Tenderness, No Pedal Edema Neurologic/Psychiatric: Alert, Normal Mood/Affect Skin: Normal Color, Warm/Dry Progress/Results/Core Measures Results/Orders Lab Results Laboratory Tests Test 06/05/23 18:28 06/05/23 18:34 Range/Units White Blood Count 7.4 4.3-11.0 10^3/uL Red Blood Count 4.60 3.80-5.11 10^6/uL Hemoglobin 13.6 11.5-16.0 g/dL Hematocrit 42 35-52 % Mean Corpuscular Volume 91 80-99 fL Mean Corpuscular Hemoglobin 30 25-34 pg Mean Corpuscular Hemoglobin Concent 32 32-36 g/dL Red Cell Distribution Width 12.9 10.0-14.5 % Platelet Count 248 130-400 10^3/uL Mean Platelet Volume 10.9 9.0-12.2 fL Immature Granulocyte % (Auto) 0 % Neutrophils (%) (Auto) 64 42-75 % Lymphocytes (%) (Auto) 26 12-44 % Monocytes (%) (Auto) 8 0-12 % Eosinophils (%) (Auto) 1 0-10 % Basophils (%) (Auto) 0 0-10 % Neutrophils # (Auto) 4.7 1.8-7.8 10^3/uL Lymphocytes # (Auto) 1.9 1.0-4.0 10^3/uL Monocytes # (Auto) 0.6 0.0-1.0 10^3/uL Eosinophils # (Auto) 0.1 0.0-0.3 10^3/uL Basophils # (Auto) 0.0 0.0-0.1 10^3/uL Immature Granulocyte # (Auto) 0.0 0.0-0.1 10^3/uL Prothrombin Time 15.3 H 12.2-14.7 SEC INR Comment 1.2 0.8-1.4 Activated Partial Thromboplast Time 33 24-35 SEC D-Dimer 0.54 H 0.00-0.49 UG/ML Sodium Level 138 135-145 MMOL/L Potassium Level 3.8 3.6-5.0 MMOL/L Chloride Level 105 98-107 MMOL/L Carbon Dioxide Level 24 21-32 MMOL/L Anion Gap 9 5-14 MMOL/L Blood Urea Nitrogen 10 7-18 MG/DL Creatinine 0.82 0.60-1.30 MG/DL Estimat Glomerular Filtration Rate 97 BUN/Creatinine Ratio 12 Glucose Level 87 70-105 MG/DL Calcium Level 9.4 8.5-10.1 MG/DL Corrected Calcium 9.2 8.5-10.1 MG/DL Magnesium Level 2.0 1.6-2.4 MG/DL Total Bilirubin 0.5 0.1-1.0 MG/DL Aspartate Amino Transf (AST/SGOT) 17 5-34 U/L Alanine Aminotransferase (ALT/SGPT) 22 0-55 U/L Alkaline Phosphatase 65 40-136 U/L Troponin I < 0.028 <0.028 NG/ML Total Protein 7.4 6.4-8.2 GM/DL Albumin 4.3 3.2-4.5 GM/DL Influenza Type A (RT-PCR) Not Detected Not Detecte Influenza Type B (RT-PCR) Not Detected Not Detecte SARS-CoV-2 RNA (RT-PCR) Not Detected Not Detecte My Orders Orders - AMBER CORLEY APRN Ekg Tracing (06/05/23 18:22) Cbc And Automated Diff (06/05/23 18:29) Magnesium (06/05/23 18:29) Chest 1 View, Ap/Pa Only (06/05/23 18:29) Comprehensive Metabolic Panel (06/05/23 18:29) Protime With Inr (06/05/23 18:29) Partial Thromboplastin Time (06/05/23 18:29) Monitor-Rhythm Ecg Trace Only (06/05/23 18:29) Ed Iv/Invasive Line Start (06/05/23 18:29) Fibrin Degradation Products (06/05/23 18:29) Troponin I Banks (06/05/23 18:29) Covid 19 Inhouse Test (06/05/23 18:29) Influenza A And B By Pcr (06/05/23 18:29) Ct Angio Chest W (R/O Pe) (06/05/23 18:35) Iohexol Injection (Omnipaque 350 Mg/Ml 1 (06/05/23 19:00) Received Contrast (Hold Metformin- Contr (06/05/23 19:00) Ns (Ivpb) 100 Ml (Sodium Chloride 0.9% 1 (06/05/23 19:00) Vital Signs/I&O 06/05/23 18:15 Temp 36.6 Pulse 81 Resp 16 B/P (MAP) 126/84 (98) Pulse Ox 99 Blood Pressure Mean: 98 Progress Progress Note : Progress Note Patient seen and evaluated, resting comfortably in bed, no acute distress. Based on exam and symptoms, I am concerned for PE. Work-up initiated including CBC, CMP, magnesium, troponin, coags, BNP, chest x-ray, EKG, CT angio chest PE rule out, COVID and flu testing ordered. 2004 Labs, chest x-ray, CT reviewed. CBC grossly normal. CMP grossly normal. Magnesium normal. Troponin negative. Coags show slightly elevated PT 15.3. D- dimer slightly elevated 0.54. COVID and flu negative. Chest x-ray shows no acute cardiopulmonary process. CT angio shows no pulmonary embolism, no other acute pulmonary abnormality. Results discussed with patient. Patient is stable for discharge. Discharge instructions and return precautions provided. Initial ECG Impression Date: Jun 05, 2023 Initial ECG Impression Time: 18:30 Initial ECG Rate: 75 Initial ECG Rhythm: Normal Sinus Initial ECG Intervals: Normal Initial ECG Impression: Nonspecific Changes Initial ECG Comparisson: No Previous ECG Available Comment Insignificant Q waves in lead III, T wave inversion in lead III and V1. Diagnostic Imaging Diagonstic Imaging: Xray Plain Films/CT/US/NM/MRI: chest Comments [facility], [place] NAME: REBECA LEE I [facility] REC#: [id number] PT STATUS: REG ER : 1990 PHYSICIAN: AMBER CORLEY APRN ADMIT DATE: 06/05/23/ER Signed Date of Exam:06/05/23 CHEST 1 VIEW, AP/PA ONLY PATIENT HISTORY: Chest pain. TECHNIQUE: Single frontal view of the chest. COMPARISON: None FINDINGS: The lung volumes are normal. No focal consolidation is seen. No large pleural effusion or pneumothorax is seen. The cardiomediastinal silhouette is normal in size and contour. No acute osseous abnormality is seen. IMPRESSION: No acute pulmonary abnormality seen. Dictated by: Dictated on workstation # [id number] Dict: 06/05/231923 Trans: 06/05/231931 CV [id number] Interpreted by: TIFFANIE CARREON MD Electronically signed by: TIFFANIE CARREON MD 06/05/231931 Diagonstic Imaging: CT Plain Films/CT/US/NM/MRI: chest Comments [facility], [place] NAME: REBECA LEE I [facility] REC#: [id number] PT STATUS: REG ER : 1990 PHYSICIAN: AMBER CORLEY APRN ADMIT DATE: 06/05/23/ER Signed Date of Exam:06/05/23 CT ANGIO CHEST W (R/O PE) HISTORY: Shortness of air, history of deep vein thrombosis, elevated D-dimer. COMPARISON: Chest x-ray from the same day. TECHNIQUE: Axial CT angiogram of the chest was performed following intravenous administration of contrast with sagittal, coronal and MIPS reformats. All CT scans use one or more of the following dose optimizing techniques: automated exposure control, MA and/or KvP adjustment based on patient size and exam type or iterative reconstruction. FINDINGS: The pulmonary arteries or diagnostic to the segmental level. No filling defects are seen to indicate a pulmonary embolus. The heart is normal in size. There is no pericardial effusion. The aorta is normal in caliber. There is no mediastinal or axillary adenopathy. There is dependent atelectasis in the lungs. No central endobronchial lesions are seen. No consolidation is seen. Visible portions of the upper abdomen demonstrate no acute abnormality. No acute osseous abnormality is seen. IMPRESSION: 1. No pulmonary embolus. No acute pulmonary abnormality is seen. Dictated by: Dictated on workstation # [id number] Dict: 06/05/231913 Trans: 06/05/231926 CV [id number] Interpreted by: TIFFANIE CARREON MD Electronically signed by: TIFFANIE CARREON MD 06/05/231926 Departure Impression Primary Impression: Shortness of breath Additional Impression: Cough Disposition: 01 HOME, SELF-CARE Condition: Stable Departure-Patient Inst. Decision time for Depature: 20:08 Referrals: [facility] (PCP/Family) Primary Care Physician Patient Instructions: Shortness of Breath (Dyspnea) (DC) Add. Discharge Instructions: Continue taking your Eliquis as prescribed. Follow-up with your primary care provider if symptoms continue. Return for any new, concerning, or worsening symptoms. All discharge instructions reviewed with patient and/or family. Voiced understanding. AMBER CORLEY APRN Jun 05, 2023 18:42
[2023-06-05 18:46] LABS: ALBUMIN 4.3 GM/DL (3.2-4.5); CHLORIDE 105 MMOL/L (98-107); POTASSIUM 3.8 MMOL/L (3.6-5.0); SODIUM 138 MMOL/L (135-145)
[2023-06-05 18:47] LABS: CALCIUM 9.4 MG/DL (8.5-10.1)
[2023-06-05 18:48] LABS: GLUCOSE 87 MG/DL (70-105); TOTAL PROTEIN 7.4 GM/DL (6.4-8.2)
[2023-06-05 18:49] LABS: CARBON DIOXIDE 24 MMOL/L (21-32)
[2023-06-05 18:50] LABS: BILIRUBIN,TOTAL 0.5 MG/DL (0.1-1.0)
[2023-06-05 18:52] LABS: ALKALINE PHOSPHATASE 65 U/L (40-136); CREATININE SERUM 0.82 MG/DL (0.60-1.30); GFR ESTIMATED 97
[2023-06-05 18:53] LABS: BUN/CREATININE RATIO 12
[2023-06-05 18:54] LABS: INR 1.2 (0.8-1.4); PROTHROMBIN TIME PATIENT 15.3 SEC (12.2-14.7)
[2023-06-05 18:55] LABS: ALANINE AMINOTRANSFERASE 22 U/L (0-55)
[2023-06-05 18:57] LABS: FIBRIN DEGRADATION PRODUCTS 0.54 UG/ML (0.00-0.49)
[2023-06-05] MEDS ORDERED: HOLD METFORMIN - RECEIVED CONTRAST 20 ML VIAL IV SCH (19:00)
[2023-06-05] MEDS ORDERED: NS 100 ML (IVPB) BAG IV ONE (19:00)
[2023-06-05] MEDS ORDERED: IOHEXOL 350 MG/ML 100 ML (OMNIPAQUE 350) VIAL IV ONE (19:00)
--- NOTE | 2023-06-05 19:21 | Diagnostic Imaging Report ---
HISTORY: Shortness of air, history of deep vein thrombosis, elevated D-dimer. COMPARISON: Chest x-ray from the same day. TECHNIQUE: Axial CT angiogram of the chest was performed following intravenous administration of contrast with sagittal, coronal and MIPS reformats. All CT scans use one or more of the following dose optimizing techniques: automated exposure control, MA and/or KvP adjustment based on patient size and exam type or iterative reconstruction. FINDINGS: The pulmonary arteries or diagnostic to the segmental level. No filling defects are seen to indicate a pulmonary embolus. The heart is normal in size. There is no pericardial effusion. The aorta is normal in caliber. There is no mediastinal or axillary adenopathy. There is dependent atelectasis in the lungs. No central endobronchial lesions are seen. No consolidation is seen. Visible portions of the upper abdomen demonstrate no acute abnormality. No acute osseous abnormality is seen. IMPRESSION: 1. No pulmonary embolus. No acute pulmonary abnormality is seen. Dictated by: Dictated on workstation # [id number]
--- NOTE | 2023-06-05 19:28 | Diagnostic Imaging Report ---
PATIENT HISTORY: Chest pain. TECHNIQUE: Single frontal view of the chest. COMPARISON: None FINDINGS: The lung volumes are normal. No focal consolidation is seen. No large pleural effusion or pneumothorax is seen. The cardiomediastinal silhouette is normal in size and contour. No acute osseous abnormality is seen. IMPRESSION: No acute pulmonary abnormality seen. Dictated by: Dictated on workstation # [id number]
== END 2023-06-05 20:25 | disposition home or self-care (01) ==
LOC: EDUNIT# 18:08 → ER 18:11
DX: R06.02 Shortness of breath (principal); R05.9 Cough, unspecified; R07.89 Other chest pain; Z86.718 Personal history of other venous thrombosis and embolism
CPT/HCPCS: 36415; 71045; 71275; 80053; 83735; 84484; 85025; 85379; 85610; 85730; 87636; 93005